=== PATIENT | male | born 1970 | race Caucasian/White ===

== ENCOUNTER 2017-07-13 11:45 | Observation (INO) | payer MEDICARE, MEDICAID ==
[~2017-07-13] VITALS: Ht 193 cm; Wt 106.6 kg
[~2017-07-13 11:45] MED LIST: ACHD5005 PO; CPR500T PO; [UNRECOGNIZED DRUG - OTHER]
[2017-07-13] MEDS ORDERED: fentaNYL INJECTION 100 MCG/2 ML AMP IVP STA (11:59)
[2017-07-13] MEDS ORDERED: KETOROLAC 30 MG/ML VIAL IVP STA (11:59)
[2017-07-13] MEDS ORDERED: NS IV 1000 ML 1,000 ML IV ONE ×3 (11:59→12:38)
[2017-07-13] MEDS ORDERED: ONDANSETRON 4 MG/2 ML (SDV) Z0FRAN IVP ONE (12:00)
[2017-07-13 12:21] LABS: BASOPHILS # (AUTO) 0.1 10^3/uL (0.0-0.1); BASOPHILS % (AUTO) 1 % (0-10); EOSINOPHILS % (AUTO) 0 % (0-10); HEMATOCRIT 47 % (40-54); HEMOGLOBIN 17.3 G/DL (13.3-17.7); LYMPHOCYTES # (AUTO) 2.3 X 10^3 (1.0-4.0); LYMPHOCYTES % (AUTO) 15 % (12-44); MEAN CORPUSCULAR HEMOGLOBIN 33 PG (25-34); MEAN CORPUSCULAR HGB CONC 37 G/DL (32-36); MEAN CORPUSCULAR VOLUME 90 FL (80-99); MONOCYTES # (AUTO) 1.2 X 10^3 (0.0-1.0); MONOCYTES % (AUTO) 8 % (0-12); NEUTROPHILS # (AUTO) 11.7 X 10^3 (1.8-7.8); NEUTROPHILS % (AUTO) 77 % (42-75); PLATELET COUNT 208 10^3/uL (130-400); RED BLOOD COUNT 5.19 10^6/uL (4.35-5.85); RED CELL DISTRIBUTION WIDTH 12.2 % (10.0-14.5); WHITE BLOOD COUNT 15.2 10^3/uL (4.3-11.0)
[2017-07-13 12:30] LABS: PROTHROMBIN TIME PATIENT 13.4 SEC (12.2-14.7)
[2017-07-13 12:36] LABS: BAND NEUTROPHILS 11 %; BASOPHILS % (MANUAL) 0 %; EOSINOPHILS % (MANUAL) 0 %; LYMPHOCYTES % (MANUAL) 11 %; MONOCYTES % (MANUAL) 4 %; NEUTROPHILS % (MANUAL) 74 %; RBC MORPH NORMAL
[2017-07-13] MEDS ORDERED: cefTRIAXone 1 GM (ROCEPHIN) VIAL IV STA (12:38)
[2017-07-13 12:39] LABS: ALANINE AMINOTRANSFERASE 42 U/L (0-55); ALBUMIN 4.2 GM/DL (3.2-4.5); ALKALINE PHOSPHATASE 54 U/L (40-136); BILIRUBIN,TOTAL 1.6 MG/DL (0.1-1.0); BUN/CREATININE RATIO 15; CALCIUM 9.8 MG/DL (8.5-10.1); CARBON DIOXIDE 22 MMOL/L (21-32); CHLORIDE 99 MMOL/L (98-107); CREATININE SERUM 0.92 MG/DL (0.60-1.30); GFR ESTIMATED > 60; GLUCOSE 129 MG/DL (70-105); LIPASE 17 U/L (8-78); POTASSIUM 4.1 MMOL/L (3.6-5.0); SODIUM 134 MMOL/L (135-145); TOTAL PROTEIN 9.5 GM/DL (6.4-8.2)
--- NOTE | 2017-07-13 13:00 | Diagnostic Imaging Report ---
Indication: Left flank pain. Febrile. Findings: Portable chest does suggest focal area of increased density laterally in the left lung base. The lungs are otherwise well aerated and clear. The heart is not enlarged. There is no pulmonary edema. No hilar adenopathy. No pneumothorax or pleural effusion. Impression: Findings suggestive of a small alveolar infiltrate laterally in the left lung base. Followup recommended. Dictated by: Dictated on workstation # [id number]
--- NOTE | 2017-07-13 13:30 | Diagnostic Imaging Report ---
PROCEDURE: CT urinary tract, rule out kidney stone. TECHNIQUE: Multiple contiguous axial images were obtained through the abdomen and pelvis without the use of intravenous contrast. INDICATION: Left flank pain, fever. FINDINGS: Air-containing nondilated appendix well visualized and normal. There is no hydronephrosis or opaque kidney stone. The liver, gallbladder, bile ducts, spleen, adrenals and pancreas were unremarkable. The aorta is nonaneurysmal. There is no bowel, biliary or urinary tract obstruction. No perienteric or pericolonic edema. No bowel wall thickening. No focal inflammatory process. The superficial subcutaneous circumscribed lesion measuring 4 cm in the left groin distorting the skin surface suggestive of a sebaceous cyst but warranting clinical correlation. Lung bases reveal patchy airspace opacity in the left lower lobe suggestive of multifocal pneumonia. Some lower lobe bronchiectasis and airway thickening. No basilar effusion or abscess. Given the nodularity of left basilar infiltrates a CT followup to confirm resolution is indicated to more confidently exclude neoplasm. IMPRESSION: 1. Normal appendix, unobstructed urinary tracts, no inflammatory process or acute appearing abdominopelvic abnormalities. 2. Patchy basilar infiltrates most notably in the left lower lobe suggest foci of pneumonia but warrant a followup CT chest in one months' time to confirm resolution. 3. Subcutaneous left groin lesion suggest large sebaceous cyst but clinical correlation advised. Dictated by: Dictated on workstation # [id number]
[2017-07-13] MEDS ORDERED: RT-ALBUTEROL/IPRATROPIUM 3 ML (DUONEB) VIAL INH ONE (14:00)
[2017-07-13] MEDS ORDERED: morphine INJ 10 MG/ML 1ML (SYR OR VIAL) IVP STA (14:20)
[2017-07-13] MEDS ORDERED: ORPHENADRINE 60 MG/2 ML (NORFLEX) AMP IV STA (14:20)
[2017-07-13] MEDS ORDERED: CATHETER FLUSH 10 ML SYR IV PRN ×2 (14:30→17:30)
[2017-07-13] MEDS ORDERED: NS 250 ML (IVPB) BAG IV ONE (14:30)
[2017-07-13] MEDS ORDERED: IOHEXOL 350 MG/ML 150 ML (OMNIPAQUE 350) VIAL IV ONE (14:30)
--- NOTE | 2017-07-13 14:47 | ED General ---
General Chief Complaint: Abdominal/GI Problems Stated Complaint: SEPSIS, L PNEUMONIC, SEBACEOUS CYST L GROIN Nursing Triage Note: c/o left flank pain/fever. Also reports cough/runny nose. Onset last night. Nursing Sepsis Screen: Possible Sepsis Risk Source of Information: Patient Exam Limitations: No Limitations History of Present Illness Date Seen by Provider: Jul 13, 2017 Time Seen by Provider: 11:55 Initial Comments 46-year-old male patient presents to the emergency department complaints of left flank pain and fever 102F beginning last night. Also complains of cough, rhinorrhea, and sneezing beginning this a.m. Has been unable to urinate today. Denies any history of kidney stones or family history kidney stones. Denies history of similar symptoms. Location Injury Occurred: denies known injury Timing/Duration: Getting Worse, Other (onset last night) Modifying Factors: worse with Movement, worse with Other (worse with palpation , deep breath, movement) Allergies and Home Medications Allergies Coded Allergies: No Known Drug Allergies (Unverified , 05/19/10) Home Medications No Active Prescriptions or Reported Meds Constitutional: chills, No diaphoresis, No dizziness, fever, malaise EENTM: see HPI, nose congestion, No ear pain, No throat pain Respiratory: cough, No dyspnea on exertion, No hemoptysis, No orthopnea, phlegm (clear productive cough), No short of breath, No stridor, wheezing Cardiovascular: No chest pain, No edema, No palpitations, No syncope Gastrointestinal: see HPI, No abdominal pain, No constipation, No diarrhea, No hematemesis, No heartburn, No jaundice, loss of appetite, No melena, No nausea, No vomiting Genitourinary: see HPI, No discharge, No dysuria, No frequency, No hematuria, hesitancy, No incontinence, pain (left flank pain) Musculoskeletal: back pain (left back pain), No joint pain Skin: no symptoms reported Psychiatric/Neurological: No Symptoms Reported All Other Systems Reviewed Negative Unless Noted: Yes (Negative excepted noted.) Past Spihrjz-Gwcrlh-Vvgxrr Hx Patient Social History Recent Foreign Travel: No Contact w/Someone Who Travel: No Recent Infectious Disease Expo: No Surgeries History of Surgeries: Yes (lip surgery, wisdom teeth, shoulder surgery, leg surgery, and T&A) Respiratory History of Respiratory Disorde: No Cardiovascular History of Cardiac Disorders: No Neurological History of Neurological Disord: No Genitourinary History of Genitourinary Disor: Yes (syphilis at age 16) Gastrointestinal History of Gastrointestinal Di: No Musculoskeletal History of Musculoskeletal Dis: Yes Musculoskeletal Disorders: Back Injury Endocrine History of Endocrine Disorders: No HEENT History of HEENT Disorders: No Cancer History of Cancer: No Reviewed Nursing Assessment Reviewed/Agree w Nursing PMH: Yes Family Medical History Significant Family History: No Pertinent Family Hx Physical Exam-Suspected Sepsis Physical Exam Vital Signs Vital Signs - First Documented 07/13/17 11:55 Temp 100.3 Pulse 130 Resp 22 B/P (MAP) 150/107 (121) Pulse Ox 98 O2 Delivery Room Air Capillary Refill : Less Than 3 Seconds Blood Pressure Mean: 121 General Appearance: WD/WN, Anxious, Moderate Distress HEENT: TMs Normal, Moist Mucous Membranes, Other (positive nasal congestion, and pharyngeal erythema, rhinorrhea) Neck: Normal Inspection, Non Tender, Supple Respiratory: Lungs Clear, Normal Breath Sounds, No Accessory Muscle Use, No Respiratory Distress, Other (left posterior lower and lateral ribs tender to palpation without deformity, swelling, or ecchymosis.) Cardiovascular: No Edema, No Murmur, Normal Peripheral Pulses, Tachycardia Gastrointestinal: Normal Bowel Sounds, No Organomegaly, No Pulsatile Mass, Soft , No Mass, Other (left flank tenderness and left upper quadrant tenderness with guarding. No rebound tenderness noted.) Back: Normal Inspection, No Vertebral Tenderness, CVA Tenderness (L), No CVA Tenderness (R) Extremity: Normal Capillary Refill, Normal Inspection, No Calf Tenderness, No Pedal Edema Neurologic/Psychiatric: Alert, Oriented x3, Other (anxious, groaning in pain, tearful) Skin: normal color, warm/dry Focused Exam Evaluation Lactate Level Laboratory Tests 07/13/17 12:10: Lactic Acid Level 2.01*H 07/13/17 14:14: Lactic Acid Level 0.95 Lactic Acid Level Laboratory Tests Test 07/13/17 12:10 07/13/17 14:14 Lactic Acid Level 2.01 MMOL/L (0.50-2.00) *H 0.95 MMOL/L (0.50-2.00) Progress/Results/Core Measures Suspected Sepsis Recent Fever Within 48 Hours: Yes Infection Criteria Present: Suspected New Infection New/Unexplained Altered Menta: No Sepsis Screen: Possible Sepsis Risk Sepsis Diagnosis: SIRS Temperature:100.3 Pulse: 130 Respiratory Rate: 22 Laboratory Tests 07/13/17 12:10: White Blood Count 15.2H Blood Pressure 150 /107 Mean: 121 Laboratory Tests 07/13/17 12:10: Lactic Acid Level 2.01*H 07/13/17 14:14: Lactic Acid Level 0.95 Laboratory Tests 07/13/17 12:10: Creatinine 0.92, INR Comment 1.0, Platelet Count 208, Total Bilirubin 1.6H Results/Orders Lab Results Laboratory Tests Test 07/13/17 12:10 07/13/17 14:14 Range/Units White Blood Count 15.2 H 4.3-11.0 10^3/uL Red Blood Count 5.19 4.35-5.85 10^6/uL Hemoglobin 17.3 13.3-17.7 G/DL Hematocrit 47 40-54 % Mean Corpuscular Volume 90 80-99 FL Mean Corpuscular Hemoglobin 33 25-34 PG Mean Corpuscular Hemoglobin Concent 37 H 32-36 G/DL Red Cell Distribution Width 12.2 10.0-14.5 % Platelet Count 208 130-400 10^3/uL Mean Platelet Volume 11.0 H 7.4-10.4 FL Neutrophils (%) (Auto) 77 H 42-75 % Lymphocytes (%) (Auto) 15 12-44 % Monocytes (%) (Auto) 8 0-12 % Eosinophils (%) (Auto) 0 0-10 % Basophils (%) (Auto) 1 0-10 % Neutrophils # (Auto) 11.7 H 1.8-7.8 X 10^3 Lymphocytes # (Auto) 2.3 1.0-4.0 X 10^3 Monocytes # (Auto) 1.2 H 0.0-1.0 X 10^3 Eosinophils # (Auto) 0.0 0.0-0.3 10^3/uL Basophils # (Auto) 0.1 0.0-0.1 10^3/uL Neutrophils % (Manual) 74 % Lymphocytes % (Manual) 11 % Monocytes % (Manual) 4 % Eosinophils % (Manual) 0 % Basophils % (Manual) 0 % Band Neutrophils 11 % Blood Morphology Comment NORMAL Prothrombin Time 13.4 12.2-14.7 SEC INR Comment 1.0 0.8-1.4 Activated Partial Thromboplast Time 30 24-35 SEC Sodium Level 134 L 135-145 MMOL/L Potassium Level 4.1 3.6-5.0 MMOL/L Chloride Level 99 98-107 MMOL/L Carbon Dioxide Level 22 21-32 MMOL/L Anion Gap 13 5-14 MMOL/L Blood Urea Nitrogen 14 7-18 MG/DL Creatinine 0.92 0.60-1.30 MG/DL Estimat Glomerular Filtration Rate > 60 BUN/Creatinine Ratio 15 Glucose Level 129 H 70-105 MG/DL Lactic Acid Level 2.01 *H 0.95 0.50-2.00 MMOL/L Calcium Level 9.8 8.5-10.1 MG/DL Total Bilirubin 1.6 H 0.1-1.0 MG/DL Aspartate Amino Transf (AST/SGOT) 29 5-34 U/L Alanine Aminotransferase (ALT/SGPT) 42 0-55 U/L Alkaline Phosphatase 54 40-136 U/L Total Protein 9.5 H 6.4-8.2 GM/DL Albumin 4.2 3.2-4.5 GM/DL Lipase 17 8-78 U/L Serum Alcohol < 10 <10 MG/DL Micro Results Microbiology 07/13/17 Influenza Types A,B Antigen (GARRISON) - Final, Complete My Orders Orders - DEVIN RESTREPO Ct Abd/Pelvis Wo(Kidney Stone) (07/13/17 12:06) Chest 1 View, Ap/Pa Only (07/13/17 12:06) Alcohol (07/13/17 12:06) Drug Screen Stat (Urine) (07/13/17 12:06) Lactic Acid Analyzer (07/13/17 12:06) Lipase (07/13/17 12:06) Blood Culture (07/13/17 12:06) Influenza A And B Antigens (07/13/17 12:06) Protime With Inr (07/13/17 12:06) Partial Thromboplastin Time (07/13/17 12:06) Vital Signs Adult Sepsis Patie Q1H (07/13/17 12:06) Ceftriaxone Injection (Rocephin Injectio (07/13/17 12:38) Ns Iv 1000 Ml (Sodium Chloride 0.9%) (07/13/17 12:38) Ns Iv 1000 Ml (Sodium Chloride 0.9%) (07/13/17 12:38) Ct Angio Chest W (07/13/17 13:38) Albuterol/Ipra Inhalation Soln (Duoneb I (07/13/17 14:00) Svn Sm Volume Nebulizer Rt-Rfs (07/13/17 13:50) Morphine Injection (Morphine Injection (07/13/17 14:20) Orphenadrine Injection (Norflex Injectio (07/13/17 14:20) Iohexol Injection (Omnipaque 350 Mg/Ml 1 (07/13/17 14:30) Sodium Chloride Flush (Catheter Flush Sy (07/13/17 14:30) Ns (Ivpb) (Sodium Chloride 0.9%) (07/13/17 14:30) Medications Given in ED Current Medications Medications Dose Ordered Sig/Debra Route Start Time Stop Time Status Last Admin Dose Admin Ondansetron HCl 4 mg ONCE ONCE IVP 07/13/17 12:00 07/13/17 12:01 DC 07/13/17 12:26 4 MG Sodium Chloride 1,000 ml @ 0 mls/hr Q0M ONCE IV 07/13/17 11:59 07/13/17 12:01 DC 07/13/17 12:26 1,000 MLS/HR Sodium Chloride 1,000 ml @ 0 mls/hr Q0M ONCE IV 07/13/17 12:38 07/13/17 12:42 DC 07/13/17 14:20 0 MLS/HR Vital Signs/I&O Vital Sign - Last 12Hours 07/13/17 07/13/17 07/13/17 07/13/17 11:55 12:25 12:25 14:07 Temp 100.3 100.3 100.3 Pulse 130 Resp 22 B/P (MAP) 150/107 (121) Pulse Ox 98 93 O2 Delivery Room Air Room Air 07/13/17 15:00 Temp 100.3 Capillary Refill : Less Than 3 Seconds Blood Pressure Mean: 121 Departure Communication (Admissions) Communication Dr. Lo Impression Impression: Primary Impression: Sepsis Additional Impressions: Left lower lobe pneumonia Sebaceous cyst Disposition: ADMITTED INPATIENT Condition: Stable Admissions Decision to Admit Reason: Admit from ER (General) Decision to Admit/Date: Jul 13, 2017 Departure-Patient Inst. Referrals: NO,LOCAL PHYSICIAN (PCP/Family) Primary Care Physician Scripts No Active Prescriptions or Reported Meds DEVIN RESTREPO Jul 13, 2017 14:47
[2017-07-13] MEDS ORDERED: NS IV 1000 ML 1,000 ML ONE (15:42)
--- NOTE | 2017-07-13 15:46 | Diagnostic Imaging Report ---
PROCEDURE: CT angiography of the chest with contrast. TECHNIQUE: Multiple contiguous axial images were obtained through the chest after uneventful bolus administration of intravenous contrast. Reconstructed CTA MIP acquisitions were also performed. INDICATION: Left flank pain since last night. Shortness of breath. FINDINGS: There is moderate opacification of the aorta and pulmonary arteries. There are no filling defects to indicate pulmonary emboli. No evidence of aortic aneurysm or dissection. There are 2 densities noted in the left lung base adjacent to each other laterally. One is pleural-based measuring approximately 2.3 cm. A second just central to this measures 1.8 cm. These do have a somewhat solid appearance and do not show air bronchograms. There is also a 1.5 cm nodule in the left upper lobe with a smaller 5 mm nodule in the lingula. The lungs are otherwise well aerated and clear. There are a few scattered mediastinal lymph nodes noted in the middle mediastinum and the AP window all measuring less than 1 cm. Left hilar lymph node present measuring approximately 1.5 cm. There is no pleural effusion or pericardial effusion. IMPRESSION: 1. There are several pulmonary nodules involving the lateral aspect of the left lower lobe as well as the left upper lobe and lingula. There are also scattered mediastinal lymph nodes with left hilar lymph node. These findings may all be inflammatory in nature though underlying malignancy could not be excluded from this single exam. 2. No evidence of pulmonary emboli. Dictated by: Dictated on workstation # [id number]
--- NOTE | 2017-07-13 15:52 | History & Physical-Hospitalist ---
HPI History of Present Illness: HPI/Chief Complaint Pt is a 46yoCM with no reported medical history who presented to the ER with CC of back and left flank pain that started suddenly last night. He denies any previous history of similar pain or kidney stones. It continued to worsen throughout the day today and he presented to the ER for evaluation. He denies any hematuria or dysuria. He denies any cough, SOB, or sputum. On CT abd and pelvis no stone was seen or abdominal pathology but a left lower lobe infiltrate was noted. A CTA Chest was done in the ER but official read is pending. He denies any sick contacts but has been febrile since last night to 101. Source: patient Exam Limitations: no limitations Date Seen 07/13/17 Time Seen by Provider: 15:30 Attending Physician Ankit Lo MD PCP No,Local Physician Referring Physician Date of Admission Jul 13, 2017 at 13:57 Home Medications & Allergies Home Medications Reviewed patient Home Medication Reconciliation Form Allergies Allergies Coded Allergies No Known Drug Allergies ([id number]/16/10) Past Tofcdmx-Xqvtnd-Rookos Hx Patient Social History Alcohol Use: Denies Use Recreational Drug Use: Yes Drug of Choice: THC- occasional Smoking Status: Never a Smoker Recent Foreign Travel: No Contact w/other who traveled: No Recent Infectious Disease Expo: No Surgeries Yes Abdominal (hernia), Orthopedic (shoulder and leg) Respiratory No Cardiovascular No Neurological No Genitourinary No Gastrointestinal No Musculoskeletal No HEENT History of HEENT Disorders: No Cancer No Psychosocial History of Psychiatric Problem: No Family Medical History Significant Family History: Heart Disease (grandmother), Cancer (father- prostate) Review of Systems Constitutional: No chills, fever EENTM: No blurred vision, No double vision, No nose congestion, No throat pain Respiratory: No cough, No dyspnea on exertion, No hemoptysis, No phlegm, No short of breath, No wheezing Cardiovascular: No chest pain, No edema, No palpitations Gastrointestinal: No abdominal pain, No constipation, No diarrhea, No nausea, No vomiting Genitourinary: No dysuria, No frequency, No hematuria Musculoskeletal: No joint pain, No muscle pain, other (back and flank pain) Skin: No lesions, No rash Psychiatric/Neurological: Denies Headache, Denies Numbness, Denies Tingling Physical Exam Physical Exam Vital Signs Vital Signs - First Documented 07/13/17 11:55 Temp 100.3 Pulse 130 Resp 22 B/P (MAP) 150/107 (121) Pulse Ox 98 O2 Delivery Room Air Capillary Refill : Less Than 3 Seconds General Appearance: No Apparent Distress, WD/WN HEENT: PERRL/EOMI, Moist Mucous Membranes Neck: Non Tender, Supple Respiratory: No Respiratory Distress, Rhonci Cardiovascular: Regular Rate, Rhythm, No Murmur Gastrointestinal: Normal Bowel Sounds, Non Tender, Soft Extremity: Normal Capillary Refill, No Calf Tenderness Neurologic/Psychiatric: Alert, Oriented x3, Normal Mood/Affect Skin: Normal Color, Warm/Dry Results Results/Procedures Lab Laboratory Tests 07/13/17 12:10 Assessment/Plan Admission Diagnosis Severe Sepsis due to CAP Diagnosis/Problems Diagnosis/Problems (1) Sepsis Status: Acute Assessment & Plan: Febrile, leukocytosis, and tachycardia with PNA Lactic elevated to 2.01 Started on Rocephin in ER, will add Azithro Lactic acid has resolved by my exam Will check UA Flu negative Blood cultures drawn in ER No hypotension so no need for 30cc/kg bolus CTA chest pending Qualifiers: Qualified Codes: A41.9 - Sepsis, unspecified organism (2) Left lower lobe pneumonia Status: Acute Assessment & Plan: Abx as above Will get strep pna and legionella antigen Qualifiers: Qualified Codes: J18.1 - Lobar pneumonia, unspecified organism (3) Elevated blood pressure reading Assessment & Plan: No known history of hypertension Will trend (4) Prophylactic measure Assessment & Plan: NS at 250 x2 hours then 150cc/hr Lovenox Regular Diet ANKIT LO MD Jul 13, 2017 15:52
[2017-07-13 16:13] LABS: AMPHETAMINE SCREEN, URINE NEGATIVE (NEGATIVE); BARBITURATE SCREEN URINE NEGATIVE (NEGATIVE); BENZODIAZEPINES SCREEN URINE NEGATIVE (NEGATIVE); CANNABINOID SCREEN, URINE POSITIVE (NEGATIVE); COCAINE SCREEN URINE NEGATIVE (NEGATIVE); METHADONE STAT NEGATIVE (NEGATIVE); METHAMPHETAMINE SCREEN URINE S NEGATIVE (NEGATIVE); OPIATE SCREEN URINE POSITIVE (NEGATIVE); OXYCODONE STAT NEGATIVE (NEGATIVE); PROPOXYPHENE STAT NEGATIVE (NEGATIVE); TRICYCLIC ANTIDEPRESSANTS SCRE NEGATIVE (NEGATIVE)
[2017-07-13 16:50] VITALS: BP 169/96
[2017-07-13] MEDS ORDERED: AZITHROMYCIN 500 MG/NS 250 ML IVPB IV NR ×2 (17:33)
[2017-07-13] MEDS: NS IV 1000 ML IV ONE ×2 (17:36→17:45)
[2017-07-13] MEDS ORDERED: INFLUENZA TRIvalent 2017-2018 0.5 ML/45 MCG SYR IM ONE (17:45)
[2017-07-13] MEDS ORDERED: HYDROcodone/APAP 5 MG/325 MG (LORTAB) TAB PO PRN (17:45)
[2017-07-13] MEDS ORDERED: ONDANSETRON 4 MG/2 ML (SDV) Z0FRAN IV PRN (17:45)
[2017-07-13] MEDS: KETOROLAC 30 MG/ML VIAL IV SCH (17:46)
[2017-07-13 18:15] VITALS: BP 144/92
[2017-07-13 19:30] VITALS: BP 139/94
[2017-07-13] MEDS ORDERED: RT-ALBUTEROL/IPRATROPIUM 3 ML (DUONEB) VIAL ONE (20:04)
[2017-07-13] MEDS: RT-ALBUTEROL/IPRATROPIUM 3 ML (DUONEB) VIAL INH SCH (20:09)
[2017-07-13] MEDS ORDERED: RT-ALBUTEROL/IPRATROPIUM 3 ML (DUONEB) VIAL INH PRN (20:15)
[2017-07-13] MEDS: CYCLOBENZAPRINE 10 MG (FLEXERIL) TAB PO SCH (20:22)
[2017-07-13] MEDS: ACETAMINOPHEN 325 MG TABLET/CAPLET (TYLENOL) PO PRN (20:23)
[2017-07-13] MEDS ORDERED: fentaNYL INJECTION 100 MCG/2 ML AMP IVP PRN (21:00)
[2017-07-13] MEDS: NS IV 1000 ML 1,000 ML IV SCH (21:58)
[2017-07-14] VITALS: BP 156/92
[2017-07-14] MEDS: KETOROLAC 30 MG/ML VIAL IV SCH ×4 (00:19→17:57)
[2017-07-14] MEDS: NS IV 1000 ML 1,000 ML IV SCH ×2 (00:19→06:58)
[2017-07-14 04:11] VITALS: BP 142/87
[2017-07-14 05:27] LABS: BASOPHILS # (AUTO) 0.1 10^3/uL (0.0-0.1); BASOPHILS % (AUTO) 1 % (0-10); EOSINOPHILS % (AUTO) 0 % (0-10); HEMATOCRIT 40 % (40-54); HEMOGLOBIN 14.4 G/DL (13.3-17.7); LYMPHOCYTES # (AUTO) 2.1 X 10^3 (1.0-4.0); LYMPHOCYTES % (AUTO) 24 % (12-44); MEAN CORPUSCULAR HEMOGLOBIN 33 PG (25-34); MEAN CORPUSCULAR HGB CONC 36 G/DL (32-36); MEAN CORPUSCULAR VOLUME 92 FL (80-99); MEAN PLATELET VOLUME 10.9 FL (7.4-10.4); MONOCYTES # (AUTO) 0.7 X 10^3 (0.0-1.0); MONOCYTES % (AUTO) 8 % (0-12); NEUTROPHILS # (AUTO) 5.9 X 10^3 (1.8-7.8); NEUTROPHILS % (AUTO) 67 % (42-75); PLATELET COUNT 159 10^3/uL (130-400); RED BLOOD COUNT 4.36 10^6/uL (4.35-5.85); RED CELL DISTRIBUTION WIDTH 12.2 % (10.0-14.5); WHITE BLOOD COUNT 8.8 10^3/uL (4.3-11.0)
[2017-07-14 05:44] LABS: ALANINE AMINOTRANSFERASE 31 U/L (0-55); ALBUMIN 3.3 GM/DL (3.2-4.5); ALKALINE PHOSPHATASE 39 U/L (40-136); BILIRUBIN,TOTAL 0.8 MG/DL (0.1-1.0); BUN/CREATININE RATIO 15; CALCIUM 8.7 MG/DL (8.5-10.1); CARBON DIOXIDE 23 MMOL/L (21-32); CHLORIDE 109 MMOL/L (98-107); CREATININE SERUM 0.68 MG/DL (0.60-1.30); GFR ESTIMATED > 60; GLUCOSE 107 MG/DL (70-105); POTASSIUM 4.1 MMOL/L (3.6-5.0); SODIUM 139 MMOL/L (135-145); TOTAL PROTEIN 7.4 GM/DL (6.4-8.2)
[2017-07-14] MEDS: RT-ALBUTEROL/IPRATROPIUM 3 ML (DUONEB) VIAL INH SCH ×4 (06:31→19:17)
[2017-07-14 08:00] VITALS: BP 162/95
[2017-07-14] MEDS: CYCLOBENZAPRINE 10 MG (FLEXERIL) TAB PO SCH ×3 (08:51→20:13)
[2017-07-14] MEDS: cefTRIAXone 1 GM/NS 50 ML IVPB IV SCH ×2 (08:51)
[2017-07-14] MEDS: AZITHROMYCIN 250 MG TAB (ZITHROMAX) PO SCH (08:52)
[2017-07-14] MEDS: ENOXAPARIN 40 MG/0.4 ML (LOVENOX) SYR SC SCH (08:52)
--- NOTE | 2017-07-14 09:18 | Progress Note-Hospitalist ---
Subjective HPI/CC On Admission Date Seen by Provider: Jul 14, 2017 Time Seen by Provider: 09:17 Pt is a 46yoCM with no reported medical history who presented to the ER with CC of back and left flank pain that started suddenly last night. He denies any previous history of similar pain or kidney stones. It continued to worsen throughout the day today and he presented to the ER for evaluation. He denies any hematuria or dysuria. He denies any cough, SOB, or sputum. On CT abd and pelvis no stone was seen or abdominal pathology but a left lower lobe infiltrate was noted. A CTA Chest was done in the ER but official read is pending. He denies any sick contacts but has been febrile since last night to 101. Subjective/Events-last exam Reports feeling much better. Had some rib pain with IS yesterday evening but has not recurred. No other complaints. Objective Exam Vital Signs Vital Signs Date Time Temp Pulse Resp B/P (MAP) Pulse Ox O2 Delivery O2 Flow Rate FiO2 07/13/17 11:55 100.3 130 22 150/107 (121) 98 Room Air 07/13/17 19:58 21 Capillary Refill : Less Than 3 Seconds General Appearance: No Apparent Distress, WD/WN Respiratory: No Respiratory Distress, Crackles (left base) Cardiovascular: Regular Rate, Rhythm, No Murmur Gastrointestinal: Normal Bowel Sounds, Non Tender, Soft Extremity: Non Tender, No Calf Tenderness Neurologic/Psychiatric: Alert, Oriented x3 Results/Procedures Lab Laboratory Tests 07/13/17 12:10 07/14/17 05:15 Assessment/Plan Assessment and Plan Assess & Plan/Chief Complaint CAP Diagnosis/Problems Diagnosis/Problems (1) Sepsis Status: Acute Assessment & Plan: Febrile, leukocytosis, and tachycardia with PNA Lactic elevated to 2.01 (met severe sepsis on arrival- now resolved) Cont Rocephin and Azithro Flu negative Blood cultures drawn in ER CTA chest- shows several nodules and enlarged lymph nodes- likely reactive I discussed with patient and will need to follow up as an outpatient Qualifiers: Qualified Codes: A41.9 - Sepsis, unspecified organism (2) Left lower lobe pneumonia Status: Acute Assessment & Plan: Abx as above Pending- strep pna and legionella antigen Qualifiers: Qualified Codes: J18.1 - Lobar pneumonia, unspecified organism (3) Elevated blood pressure reading Assessment & Plan: No known history of hypertension Remains elevated- will DC fluids and if remains elevated will consider antihypertensives (4) Prophylactic measure Assessment & Plan: Saline lock Lovenox Regular Diet ANKIT PADILLA MD Jul 14, 2017 09:18
[2017-07-14] MEDS ORDERED: lisINopril 5 MG (PRINIVIL) TABLET PO SCH (09:30)
--- NOTE | 2017-07-14 10:00 | Diagnostic Imaging Report ---
EXAM: CHEST PA/LAT (2 VIEW) INDICATION: Pneumonia. COMPARISON: Chest radiograph 07/13/2017. CTA chest 07/13/2017. FINDINGS: Normal heart size and pulmonary vascularity. Nodular consolidation in the left lung base is similar to the prior exam. No pleural effusion or pneumothorax. No acute osseous findings. IMPRESSION: Stable exam including nodular opacities in the left lung base. Dictated by: Dictated on workstation # [id number]
[2017-07-14 12:00] VITALS: BP 159/90
[2017-07-14] MEDS: ACETAMINOPHEN 325 MG TABLET/CAPLET (TYLENOL) PO PRN (12:24)
[2017-07-14 16:00] VITALS: BP 132/72
[2017-07-14 20:00] VITALS: BP 138/81
[2017-07-15] VITALS: BP 157/80
[2017-07-15] MEDS: KETOROLAC 30 MG/ML VIAL IV SCH ×2 (00:31→05:55)
[2017-07-15 04:00] VITALS: BP 144/85
[2017-07-15] MEDS: RT-ALBUTEROL/IPRATROPIUM 3 ML (DUONEB) VIAL INH SCH (07:08)
[2017-07-15 08:00] VITALS: BP 153/87
[2017-07-15] MEDS ORDERED: lisINopril 5 MG (PRINIVIL) TABLET PO SCH (09:00)
[2017-07-15] MEDS ORDERED: AMOX875T2 PO (09:05)
[2017-07-15] MEDS ORDERED: LISI-556 PO (09:05)
[2017-07-15] MEDS ORDERED: ACET325T49 PO (09:05)
[2017-07-15] MEDS ORDERED: AZIT250T12 PO (09:05)
[2017-07-15] MEDS ORDERED: ACHD5005 PO (09:05)
[2017-07-15] MEDS: CYCLOBENZAPRINE 10 MG (FLEXERIL) TAB PO SCH (09:06)
[2017-07-15] MEDS: AZITHROMYCIN 250 MG TAB (ZITHROMAX) PO SCH (09:06)
[2017-07-15] MEDS: ENOXAPARIN 40 MG/0.4 ML (LOVENOX) SYR SC SCH (09:07)
[2017-07-15] MEDS: cefTRIAXone 1 GM/NS 50 ML IVPB IV SCH ×2 (09:07)
--- NOTE | 2017-07-15 09:28 | Discharge Summary-Hospitalist ---
Diagnosis/Chief Complaint Date of Admission Jul 13, 2017 at 1:57 pm Date of Discharge Discharge Date: Jul 15, 2017 Admission Diagnosis Severe Sepsis due to CAP Discharge Diagnosis CAP (1) Sepsis Status: Resolved Assessment & Plan: Febrile, leukocytosis, and tachycardia with PNA on arrival Lactic elevated to 2.01 (met severe sepsis on arrival- now resolved) Cont Rocephin and Azithro today and then complete course with Amoxil and Azithro as outpatient Flu negative Blood cultures- NGTD CTA chest- shows several nodules and enlarged lymph nodes- likely reactive I discussed with patient that he will need to follow up as an outpatient, he verbalized understanding Referral placed for Dr Osorio (2) Left lower lobe pneumonia Status: Acute Assessment & Plan: Abx as above (3) Elevated blood pressure reading Assessment & Plan: No known history of hypertension Still elevated without fluids and no longer in pain Will start Lisinopril Recommended follow up with his PCP (4) Prophylactic measure Assessment & Plan: Saline lock Lovenox Regular Diet Discharge Summary Discharge Physical Examination Allergies: Coded Allergies: No Known Drug Allergies (Unverified , 05/19/10) Vitals & I&Os Vital Signs Date Time Temp Pulse Resp B/P (MAP) Pulse Ox O2 Delivery O2 Flow Rate FiO2 07/15/17 07:08 92 Room Air 07/15/17 07:00 68 07/15/17 04:00 100.8 20 144/85 (104) 07/13/17 19:58 21 Hospital Course Pt is a 46yoCM who presented to the ER with left flank pain and was found to met severe sepsis criteria due to CAP. He was admitted for IV abx. His symptoms improved and he had no further pain and was breathing comfortably. He was offered an additional day due to fever this AM but he requested discharge today. Discussed return precautions and discharged home in stable condition. He was informed of his CT chest finding (pulmonary nodules and enlarged lymph nodes ) and the importance of following these up. Referrals were placed for Dr Flores who he has seen in the past and Dr Osorio to help facilitate follow up. Labs (last 24 hrs) Microbiology 07/13/17 Blood Culture - Preliminary, Resulted No growth 07/13/17 Influenza Types A,B Antigen (GARRISON) - Final, Complete Discharge Home Medications: Active Scripts Active Acetaminophen 325 Mg Tablet 650 Mg PO Q4H PRN Hydrocodone/Acetaminophen 5/325mg Tablet (Acetaminophen/Hydrocodone Bitart) 1 Tab Tab 1-2 Tab PO Q4H PRN Amoxicillin 875 Mg Tablet 875 Mg PO BID Lisinopril 5 Mg Tablet 5 Mg PO DAILY Azithromycin 250 Mg Tablet 250 Mg PO DAILY 2 Days Instructions to patient/family Please see electronic discharge instructions given to patient. Clinical Quality Measures DVT/VTE Risk/Contraindication: Risk Factor Score Per Nursin RFS Level Per Nursing on Admit: 1=Low/No VTE PPX Copy Copies To 1: KAZ OSORIO DO; MIKE FLORES DO Problem Qualifiers (1) Sepsis: Sepsis type: sepsis due to unspecified organism Qualified Codes: A41.9 - Sepsis, unspecified organism (2) Left lower lobe pneumonia: Pneumonia type: due to unspecified organism Qualified Codes: J18.1 - Lobar pneumonia, unspecified organism ANKIT PADILLA MD Jul 15, 2017 9:28 am
== END 2017-07-15 09:08 | disposition home or self-care (01) ==
LOC: EDUNIT# 11:45 → ER 11:46 → UNDOADMOB 13:57 → 4TH 13:57 → UNDODISOB 07-15 10:20
PROVIDERS: ADMIT Family Medicine; ATTEND Family Medicine
DX: A41.9 Sepsis, unspecified organism (principal); R65.20 Severe sepsis without septic shock; J18.9 Pneumonia, unspecified organism; I10 Essential (primary) hypertension; Z79.899 Other long term (current) drug therapy
CPT/HCPCS: 36415; 71045; 71046; 71275; 74176; 80053; 80306; 80320; 83605; 83690; 85007; 85025; 85027; 85610; 85730; 87040; 87804; 94640; 94664; 94760; 96361; 96374; 96375; G0378

== ENCOUNTER → 2017-07-18 | Outpatient (CLI) | payer MEDICARE, MEDICAID ==
[~2017-07-18] MED LIST changes: +ACET325T49 PO; +AMOX875T2 PO; +AZIT250T12 PO; +LISI-556 PO
[2017-07-18 15:44] LABS: BASOPHILS # (AUTO) 0.1 10^3/uL (0.0-0.1); BASOPHILS % (AUTO) 1 % (0-10); EOSINOPHILS # (AUTO) 0.1 10^3/uL (0.0-0.3); EOSINOPHILS % (AUTO) 1 % (0-10); HEMATOCRIT 44 % (40-54); LYMPHOCYTES % (AUTO) 23 % (12-44); MEAN CORPUSCULAR HEMOGLOBIN 32 PG (25-34); MEAN CORPUSCULAR HGB CONC 37 G/DL (32-36); MEAN CORPUSCULAR VOLUME 88 FL (80-99); MEAN PLATELET VOLUME 10.3 FL (7.4-10.4); MONOCYTES # (AUTO) 1.3 X 10^3 (0.0-1.0); MONOCYTES % (AUTO) 15 % (0-12); NEUTROPHILS # (AUTO) 5.3 X 10^3 (1.8-7.8); NEUTROPHILS % (AUTO) 60 % (42-75); PLATELET COUNT 403 10^3/uL (130-400); RED BLOOD COUNT 4.94 10^6/uL (4.35-5.85); WHITE BLOOD COUNT 8.8 10^3/uL (4.3-11.0)
--- NOTE | 2017-07-18 16:05 | Diagnostic Imaging Report ---
INDICATION: Left-sided chest pain and cough. TIME OF EXAM: 04:04 p.m. COMPARISON: Comparison is made with prior exam from 07/14/2017. FINDINGS: The heart size is stable. There are linear parenchymal densities noted in both bases suggestive of atelectasis. There is also some increased density in the left base near the costophrenic angle. Infiltrate or atelectasis cannot be excluded. The mid and upper lung gabriel are clear. No pneumothorax is seen. IMPRESSION: Bibasilar subsegmental atelectasis or scarring and questionable infiltrate or atelectasis near the left costophrenic angle. The study is otherwise unremarkable. Dictated by: Dictated on workstation # [id number]
== END ==
LOC: RAD 15:14
PROVIDERS: ATTEND Family Medicine
DX: J18.9 Pneumonia, unspecified organism (principal); R07.9 Chest pain, unspecified; R05 Cough
CPT/HCPCS: 36415; 71046; 85025

== ENCOUNTER → 2017-08-03 | Outpatient (CLI) | payer MEDICARE, MEDICAID ==
--- NOTE | 2017-08-03 15:15 | Diagnostic Imaging Report ---
INDICATION: Pulmonary nodule and cough. TIME OF EXAM: 3:13 PM COMPARISON: Correlation is made with prior study from 07/18/2017. FINDINGS: The heart size is normal. Linear parenchymal density in the left base persists consistent with atelectasis. This is slightly improved. No infiltrates are seen. No effusion. No pneumothorax is identified. IMPRESSION: Mild improved aeration to the left lung base when compared with examination from 07/18/2017. Dictated by: Dictated on workstation # [id number]
== END ==
LOC: RAD 14:44
PROVIDERS: ATTEND Family Medicine
DX: R91.1 Solitary pulmonary nodule (principal); R05 Cough
CPT/HCPCS: 71046

== ENCOUNTER → 2017-09-12 | Outpatient (CLI) | payer MEDICARE, MEDICAID ==
[~2017-09-12] MED LIST changes: +IOHEXOL 350 MG/ML 100 ML (OMNIPAQUE 350) VIAL IV ONE; +NS 250 ML (IVPB) BAG IV ONE
[2017-09-12 12:23] LABS: BUN/CREATININE RATIO 13; CREATININE SERUM 0.77 MG/DL (0.60-1.30); GFR ESTIMATED > 60
--- NOTE | 2017-09-12 13:26 | Diagnostic Imaging Report ---
PROCEDURE: CT chest with contrast only. TECHNIQUE: Multiple contiguous axial images were obtained through the chest after administration of intravenous contrast. INDICATION: Pulmonary nodules noted on prior CT. This study is performed for followup. COMPARISON: Comparison is made with prior CT chest from 07/13/2017. FINDINGS: No axillary lymphadenopathy is seen. There continue to be small lymph nodes within the mediastinum, stable when compared with prior exam. No definite hilar lymphadenopathy is seen on today's study. No pericardial or pleural fluid is identified. Parenchymal evaluation demonstrates the central airways to be unremarkable. The area of nodular density in the left upper lobe on prior study has resolved. The larger areas of questionable mass-like density in the lateral portion of the left lower lobe have resolved. Only minimal residual linear density in the left lower lobe posteriorly is seen suggestive of subsegmental atelectasis or scarring. No parenchymal mass is seen. The right lung appears to be clear. Minimal residual density in the lingula is seen consistent with scarring or atelectasis. Upper abdomen demonstrates low density throughout the liver consistent with steatosis. Spleen appears enlarged but stable. IMPRESSION: 1. Significantly improved appearance to the chest when compared with the prior CT from 07/13/2017. The areas of abnormal opacification in the left lower lobe have resolved and most likely represented an infectious/inflammatory process. The density in left upper lobe has resolved as well. Only mild residual left basilar subsegmental atelectasis or scarring is seen. Minimally prominent mediastinal nodes are stable. Dictated by: Dictated on workstation # [id number]
== END ==
LOC: RAD 11:35
PROVIDERS: ATTEND Family Medicine
DX: R91.8 Other nonspecific abnormal finding of lung field (principal)
CPT/HCPCS: 36415; 71260; 82565; 84520

== ENCOUNTER 2017-11-16 11:00 | Outpatient (CLI) | payer MEDICARE, MEDICAID ==
[~2017-11-16] VITALS: Ht 193 cm; Wt 106.6 kg
[~2017-11-16 11:00] MED LIST changes: -IOHEXOL 350 MG/ML 100 ML (OMNIPAQUE 350) VIAL IV ONE; -NS 250 ML (IVPB) BAG IV ONE
[2017-11-16] MEDS ORDERED: LISI10TA2 PO (14:17)
[2017-11-21] MEDS ORDERED: ACHD5005 PO (10:21)
== END 2017-11-16 14:18 ==
LOC: PREOP 11:00
PROVIDERS: ATTEND Surgery
DX: Z01.818 Encounter for other preprocedural examination (principal); L72.3 Sebaceous cyst

== ENCOUNTER 2017-11-21 07:25 | Day surgery (SDC) | payer MEDICARE, MEDICAID ==
[~2017-11-21] VITALS: Ht 193 cm; Wt 106.6 kg
[~2017-11-21 07:25] MED LIST changes: +LISI10TA2 PO
[2017-11-21] MEDS ORDERED: LACTATED RINGERS 1,000 ML IV PRN (07:28)
[2017-11-21] MEDS ORDERED: ceFAZolin 2 GM IV Premixed 50 ML IV ONE (07:30)
[2017-11-21 07:40] VITALS: BP 150/104
--- NOTE | 2017-11-21 08:04 | Progress Note-Pre Operative ---
Pre-Operative Progress Note H&P Reviewed The H&P was reviewed, patient examined and no changes noted. Date Seen by Provider: Nov 08, 2017 Time Seen by Provider: 11:00 Date H&P Reviewed: Nov 21, 2017 Time H&P Reviewed: 08:03 Pre-Operative Diagnosis: Nicholas cyst right nape of neck ALBERTO LOREDO MD Nov 21, 2017 8:04 am
[2017-11-21] MEDS ORDERED: FAMOTIDINE 20MG/2ML IV (PEPCID) ONE (08:20)
[2017-11-21] MEDS ORDERED: FAMOTIDINE 20MG/2ML IV (PEPCID) IVP ONE (08:20)
[2017-11-21] MEDS ORDERED: BUP/EPI 0.5% 1:200,000 (SENSORCAINE) 30 ML VIAL ONE (09:34)
[2017-11-21] MEDS ORDERED: fentaNYL INJECTION 100 MCG/2 ML AMP ONE (09:47)
[2017-11-21] MEDS ORDERED: LIDOCAINE PF 2% 5 ML (XYLOCAINE) VIAL ONE (09:47)
[2017-11-21] MEDS ORDERED: proPOfol 200 MG/20 ML (DIPRIVAN) VIAL IV ONE (09:47)
[2017-11-21] MEDS ORDERED: ONDANSETRON 4 MG/2 ML (SDV) Z0FRAN ONE (09:47)
[2017-11-21] MEDS ORDERED: ROCURONIUM 10 MG/ML 5 ML SYRINGE IV ONE (09:47)
[2017-11-21] MEDS ORDERED: MIDAZOLAM 2 MG/2 ML (VERSED) VIAL ONE (09:48)
[2017-11-21] MEDS ORDERED: SEVOFLURANE (ULTANE) 15 ML INHAL SOLN ONE ×4 (09:51→10:37)
--- NOTE | 2017-11-21 10:20 | Operative Report ---
Operative Report Date of Procedure/Surgery Nov 21, 2017 Surgeon (s) ALBERTO LOREDO MD Senior Procurement Manager (s): N/A Post-Operative Diagnosis Same Procedure Performed Excision with layered closure Description of Procedure Anesthesia Type: General Estimated blood loss (mL): Minimal Specimen(s) collected/removed Sebaceous cyst Description of the Procedure Indication for the procedure: This gentleman presented with a 6 cm sebaceous cyst over the nape of his neck on the right side. He was offered excision under general anesthetic. Informed consent was obtained after reviewing the details of the operation and complications of postoperative hematoma, wound infection and recurrence of the cyst. Description of procedure: He was placed supine on the operative table and general anesthesia induced. 2 g of Ancef were administered intravenously as prophylaxis against wound infection. The right side of his neck was prepared and draped in the usual sterile manner. Preemptive analgesia was established using 0.5 percent Marcaine with epinephrine. An elliptical incision about 7 cm in length was made and the cyst excised. Hemostasis was achieved using cautery and the incision closed using 3-0 Vicryl for the subcutaneous tissue and 4-0 Vicryl for skin, in a subcuticular fashion. Steri-Strips and a nonadherent dressing were then applied. He tolerated the procedure well, was extubated in the operating room and taken to the recovery room in a stable condition. Findings of the Procedure see op report Allergies and Home Medications Allergies Coded Allergies: No Known Drug Allergies (Unverified , 05/19/10) Home Medications Lisinopril 10 Mg Tablet, 10 MG PO DAILY, (Reported) Patient Home Medication List Home Medication List Reviewed: Yes ALBERTO LOREDO MD Nov 21, 2017 10:20 am
[2017-11-21] MEDS ORDERED: ACHD5005 PO (10:21)
--- NOTE | 2017-11-21 10:21 | Discharge Inst-Simple/Standard ---
Discharge Inst-Standard Discharge Medications New, Converted or Re-Newed RX: RX on Chart Patient Instructions/Follow Up Plan of Care/Instructions/FU: Dressings off in 48 hours. Follow-up when necessary. No sutures to be removed Activity as Tolerated: Yes Discharge Diet: No Restrictions ALBERTO LOREDO MD Nov 21, 2017 10:21 am
[2017-11-21] MEDS ORDERED: DEXAMETHASONE 10 MG/ML (DECADRON) 1 ML VIAL ONE (10:38)
[2017-11-21] MEDS ORDERED: ONDANSETRON 4 MG/2 ML (SDV) Z0FRAN IVP PRN (10:45)
[2017-11-21] MEDS ORDERED: MEPERIDINE (DEMEROL) INJ 50 MG/ML IVP PRN (10:45)
[2017-11-21] MEDS ORDERED: morphine INJ 10 MG/ML 1ML (SYR OR VIAL) IVP PRN (10:45)
[2017-11-21 11:35] VITALS: BP 131/86
[2017-11-21 12:05] VITALS: BP 136/98
[2017-11-21 12:06] VITALS: BP 136/98
[2017-11-21 12:35] VITALS: BP 130/91
== END 2017-11-21 12:40 | disposition home or self-care (01) ==
LOC: SDC 07:25
PROVIDERS: ATTEND Surgery
DX: L72.3 Sebaceous cyst (principal); I10 Essential (primary) hypertension; Z79.899 Other long term (current) drug therapy
CPT/HCPCS: 87081

== ENCOUNTER 2018-04-28 11:04 | Emergency (ER) | payer MEDICARE, MEDICAID ==
[~2018-04-28] VITALS: Ht 190.5 cm; Wt 111.1 kg
[2018-04-28] MEDS ORDERED: CLINDAMYCIN 900 MG/50 ML IVPB 50 ML IV ONE (12:00)
[2018-04-28] MEDS ORDERED: KETOROLAC 30 MG/ML VIAL IVP ONE (12:00)
--- NOTE | 2018-04-28 12:04 | ED EENT ---
History of Present Illness General Chief Complaint: General Problems/Pain Stated Complaint: SWOLLEN GLAND UNDER TONGUE Nursing Triage Note: TO ROOM REPORTS SINCE YESTERDAY HAS HAD R JAW PAIN AND SWELLING HAS HAD THIS IN THE PAST AND WAS PUT ON ANTIBIOTICS WAS TOLD HE HAD A CLOGGED GLAND Source: patient Exam Limitations: no limitations History of Present Illness Date Seen by Provider: Apr 28, 2018 Time Seen by Provider: 11:37 Initial Comments This 47-year-old man presents to the emergency room with pain along the right side of the jaw and under the tongue from a swollen and inflamed salivary gland. He has had multiple episodes of this throughout his life. He has been treated with a variety of antibiotics that seemed to resolve the problem. Today is the worst case he has had and he presents to the emergency room because it is Sunday and Dr. Flores's office is not open. He denies fever. He states the pain and swelling increases significantly when he eats. His sublingual gland is markedly edematous, indurated, erythematous, and painful. His lymph nodes on the right side of the neck are also tender. Allergies and Home Medications Allergies Coded Allergies: No Known Drug Allergies (Unverified , 05/19/10) Home Medications Clindamycin HCl 300 Mg Capsule, 300 MG PO QID Prescribed by: IGLESIA BURNS on 04/28/18 1325 Hydrocodone/Acetaminophen 1 Each Tablet, 1 EACH PO Q4-6HR PRN for PAIN-MODERATE Prescribed by: IGLESIA BURNS on 04/28/18 1325 Lisinopril 10 Mg Tablet, 10 MG PO DAILY, (Reported) Patient Home Medication List Home Medication List Reviewed: Yes Review of Systems Review of Systems Constitutional: no symptoms reported Eyes: No Symptoms Reported Ears: No Symptoms Reported Nose: no symptoms reported Mouth: see HPI Throat: see HPI Respiratory: no symptoms reported Cardiovascular: no symptoms reported Gastrointestinal: no symptoms reported Musculoskeletal: no symptoms reported Skin: no symptoms reported Neurological: No Symptoms Reported Hematologic/Lymphatic: No Symptoms Reported Past Wlztinp-Dvybgk-Sparmt Hx Patient Social History Alcohol Use: Denies Use Recreational Drug Use: No Drug of Choice: THC- occasional Smoking Status: Never a Smoker Recent Foreign Travel: No Contact w/Someone Who Travel: No Recent Infectious Disease Expo: No Recent Hopitalizations: No Immunizations Up To Date Tetanus Booster (TDap): Unknown PED Vaccines UTD: No Date of Influenza Vaccine: Jul 14, 2017 Seasonal Allergies Seasonal Allergies: No Past Medical History Surgeries: Yes (HERNIA REPAIR, HIPRIGHT, RIGHT LEG RIGHT SHOULDER) Abdominal, Orthopedic Respiratory: No Cardiac: Yes Hypertension Neurological: No Reproductive Disorders: No Sexually Transmitted Disease: Yes (syphilis at age 16) Genitourinary: No Gastrointestinal: No Musculoskeletal: Yes Back Injury Endocrine: No HEENT: No Cancer: No Psychosocial: No Integumentary: No Blood Disorders: No Family Medical History Patient reports no known family medical history. Heart Disease, Cancer Physical Exam Vital Signs Vital Signs - First Documented 04/28/18 11:28 Temp 96.4 Pulse 80 Resp 18 B/P (MAP) 156/100 (118) Pulse Ox 98 O2 Delivery Room Air Height, Weight, BMI Height: 6'3.00" Weight: 245lbs. 0.0oz. 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 No stone is palpable as the entire gland is very firm. Lymph nodes on the right side of the neck are tender.) Neck: lymphadenopathy (R) Cardiovascular: regular rate, rhythm, no edema, no murmur Respiratory: lungs clear, normal breath sounds, no respiratory distress, no accessory muscle use Neurologic/Psychiatric: supervisor felting II-XII nml as tested, no motor/sensory deficits, alert, normal mood/affect, oriented x 3 Skin: normal color, warm/dry Progress/Results/Core Measures Results/Orders Lab Results Laboratory Tests Test 04/28/18 12:04 Range/Units White Blood Count 7.3 4.3-11.0 10^3/uL Red Blood Count 5.12 4.35-5.85 10^6/uL Hemoglobin 17.2 13.3-17.7 G/DL Hematocrit 48 40-54 % Mean Corpuscular Volume 93 80-99 FL Mean Corpuscular Hemoglobin 34 25-34 PG Mean Corpuscular Hemoglobin Concent 36 32-36 G/DL Red Cell Distribution Width 12.3 10.0-14.5 % Platelet Count 216 130-400 10^3/uL Mean Platelet Volume 10.7 H 7.4-10.4 FL Neutrophils (%) (Auto) 45 42-75 % Lymphocytes (%) (Auto) 42 12-44 % Monocytes (%) (Auto) 8 0-12 % Eosinophils (%) (Auto) 5 0-10 % Basophils (%) (Auto) 1 0-10 % Neutrophils # (Auto) 3.2 1.8-7.8 X 10^3 Lymphocytes # (Auto) 3.0 1.0-4.0 X 10^3 Monocytes # (Auto) 0.6 0.0-1.0 X 10^3 Eosinophils # (Auto) 0.4 H 0.0-0.3 10^3/uL Basophils # (Auto) 0.1 0.0-0.1 10^3/uL Sodium Level 140 135-145 MMOL/L Potassium Level 4.2 3.6-5.0 MMOL/L Chloride Level 107 98-107 MMOL/L Carbon Dioxide Level 21 21-32 MMOL/L Anion Gap 12 5-14 MMOL/L Blood Urea Nitrogen 8 7-18 MG/DL Creatinine 0.76 0.60-1.30 MG/DL Estimat Glomerular Filtration Rate > 60 BUN/Creatinine Ratio 11 Glucose Level 109 H 70-105 MG/DL Calcium Level 9.9 8.5-10.1 MG/DL C-Reactive Protein High Sensitivity 0.14 0.00-0.50 MG/DL My Orders Orders - IGLESIA SOTELO MD Basic Metabolic Panel (04/28/18 11:51) Cbc With Automated Diff (04/28/18 11:51) Hs C Reactive Protein (04/28/18 11:51) Ct Neck (Soft Tissue) W (04/28/18 11:51) Clindamycin 900 Mg/50 Ml Ivpb (Cleocin P (04/28/18 12:00) Ketorolac Injection (Toradol Injection) (04/28/18 12:00) Iohexol Injection (Omnipaque 350 Mg/Ml 1 (04/28/18 12:15) Contrast Received (Contrast Received) (04/28/18 12:15) Ns (Ivpb) (Sodium Chloride 0.9%) (04/28/18 12:15) Medications Given in ED Current Medications Medications Dose Ordered Sig/Debra Route Start Time Stop Time Status Last Admin Dose Admin Clindamycin Phosphate/Dextrose 50 ml @ 100 mls/hr ONCE ONCE IV 04/28/18 12:00 04/28/18 12:29 DC 04/28/18 12:32 100 MLS/HR Iohexol 75 ml ONCE ONCE IV 04/28/18 12:15 04/28/18 12:17 DC 04/28/18 12:24 75 ML Ketorolac Tromethamine 15 mg ONCE ONCE IVP 04/28/18 12:00 04/28/18 12:01 DC 04/28/18 12:09 15 MG Sodium Chloride 250 ml ONCE ONCE IV 04/28/18 12:15 04/28/18 12:17 DC 04/28/18 12:24 80 ML Vital Signs/I&O 04/28/18 04/28/18 11:28 13:29 Temp 96.4 Pulse 80 82 Resp 18 18 B/P (MAP) 156/100 (118) 150/90 (110) Pulse Ox 98 98 O2 Delivery Room Air Blood Pressure Mean: 118 Progress Progress Note #1: Time: 12:07 Progress Note Case was discussed with Kayleigh Hart, on-call provider for Dr. Robert. She recommended further evaluation with CT scan to evaluate for stones. She also recommended treatment with clindamycin and requested labs. CT has been ordered along with clindamycin 900 mg IV. Basic labs will be pulled. Pain will be treated with Toradol. Progress Note #2: Time: 18:26 Progress Note Patient was dismissed home after treatment of pain and a dose of IV clindamycin. Results of the CT were communicated with Kayleigh Hart with Dr. Robert's clinic. She returned a phone call after patient departed asking for him to bring a CD of the images with him to an appointment at 10 o'clock tomorrow. As of the time of this note, I was unable to reach the patient to convey that information. At the time of discharge she was planning to call Dr. Robert's office first thing in the morning. I did leave a message with patient' s mother for him to call me. Diagnostic Imaging Diagonstic Imaging: CT Plain Films/CT/US/NM/MRI: other (soft tissues of the neck) Comments CT soft tissues neck viewed by me and report reviewed. See report below: NAME: MIKE FINK MED REC#: [id number] PT STATUS: DEP ER : 1970 PHYSICIAN: IGLESIA SOTELO MD ADMIT DATE: 04/28/18/ER Signed Date of Exam: 04/28/18 CT NECK (SOFT TISSUE) W PROCEDURE: CT neck soft tissue with contrast. TECHNIQUE: Multiple contiguous axial images were obtained through the neck after the administration of contrast. INDICATION: Swelling and throat pain. History of cyst in posterior neck. FINDINGS: The visualized intracranial contents are unremarkable. There is no abnormal enhancement. The visualized portion of the paranasal sinuses appear clear without air-fluid level. The visualized portion of the mastoids and the middle ear appear clear. The posterior nasopharynx and oropharynx appear appropriately symmetric without evidence of displacement of the parapharyngeal fat planes. There is no abnormal process demonstrated within the prevertebral or retropharyngeal space. There is no abnormal thickening of the epiglottis. The vallecula and piriform sinuses appear aerated. The vocal folds appear symmetric. Subglottic trachea unremarkable. The parotid glands unremarkable. The submandibular glands demonstrate some slight enlargement of the right relative to the left. There also appears to be some minimal edema around the right submandibular gland and prominence of the right submandibular duct. There is a large radiodense sialolith demonstrated at the anterior aspect of the right submandibular duct. The findings are therefore most compatible with a right-sided submandibular sialoadenitis. The thyroid is unremarkable. There are scattered non-pathologically enlarged cervical lymph nodes. The lung apices demonstrate features of paraseptal emphysema. There are minimal degenerative endplate changes within the cervical spine but no acute or suspicious osseous abnormality. IMPRESSION: 1. Large radiodense sialolith demonstrated at the anterior right submandibular duct orifice measuring up to 12 mm. There is proximal submandibular gland ductal dilatation as well as some mild enlargement and edema at the submandibular gland itself. There is no evidence of a ranula. 2. Left submandibular gland and parotid glands unremarkable. 3. Aerodigestive tract appears appropriately symmetric. 4. No pathologic adenopathy. Dictated by: Dictated on workstation # [id number] Dict: 04/28/18 1235 Trans: 04/28/18 1420 Interpreted by: GAVINO HAINES MD Electronically signed by: GAVINO HAINES MD 04/28/18 1420 Departure Impression Primary Impression: Sialolithiasis Additional Impression: Sialadenitis Disposition: HOME, SELF-CARE Condition: Improved Departure-Patient Inst. Decision time for Depature: 13:05 Referrals: BUBBA ROBERT MD, RICHARD A DO (PCP/Family) Primary Care Physician Patient Instructions: Salivary Gland Infection Add. Discharge Instructions: Take your antibiotics as prescribed. For pain use ibuprofen up to 600 mg every 6 hours as needed. Add hydrocodone as prescribed for additional pain relief. Call Dr. Robert's office on Sunday morning to arrange follow-up. Return to care if you have worsening symptoms. All discharge instructions reviewed with patient and/or family. Voiced understanding. Scripts Hydrocodone/Acetaminophen (Hydrocodone-Acetamin 5-325 mg) 1 Each Tablet 1 EACH PO Q4-6HR PRN for PAIN-MODERATE, #20 TAB Prov: IGLESIA SOTELO MD 04/28/18 Clindamycin HCl (Clindamycin HCl) 300 Mg Capsule 300 MG PO QID, #40 CAP Prov: IGLESIA SOTELO MD 04/28/18 Copy Copies To 1: MIKE FLORES DO Copies To 2: BUBBA ROBERT MD, JOSHUA T MD Apr 28, 2018 12:04
[2018-04-28 12:15] LABS: BASOPHILS # (AUTO) 0.1 10^3/uL (0.0-0.1); BASOPHILS % (AUTO) 1 % (0-10); EOSINOPHILS # (AUTO) 0.4 10^3/uL (0.0-0.3); EOSINOPHILS % (AUTO) 5 % (0-10); HEMATOCRIT 48 % (40-54); HEMOGLOBIN 17.2 G/DL (13.3-17.7); LYMPHOCYTES % (AUTO) 42 % (12-44); MEAN CORPUSCULAR HEMOGLOBIN 34 PG (25-34); MEAN CORPUSCULAR HGB CONC 36 G/DL (32-36); MEAN CORPUSCULAR VOLUME 93 FL (80-99); MEAN PLATELET VOLUME 10.7 FL (7.4-10.4); MONOCYTES # (AUTO) 0.6 X 10^3 (0.0-1.0); MONOCYTES % (AUTO) 8 % (0-12); NEUTROPHILS # (AUTO) 3.2 X 10^3 (1.8-7.8); NEUTROPHILS % (AUTO) 45 % (42-75); PLATELET COUNT 216 10^3/uL (130-400); RED BLOOD COUNT 5.12 10^6/uL (4.35-5.85); RED CELL DISTRIBUTION WIDTH 12.3 % (10.0-14.5); WHITE BLOOD COUNT 7.3 10^3/uL (4.3-11.0)
[2018-04-28] MEDS ORDERED: NS 250 ML (IVPB) BAG IV ONE (12:15)
[2018-04-28] MEDS ORDERED: IOHEXOL 350 MG/ML 100 ML (OMNIPAQUE 350) VIAL IV ONE (12:15)
[2018-04-28] MEDS ORDERED: RECEIVED CONTRAST (Hold Metformin) IV SCH (12:15)
[2018-04-28 12:49] LABS: BUN/CREATININE RATIO 11; CALCIUM 9.9 MG/DL (8.5-10.1); CARBON DIOXIDE 21 MMOL/L (21-32); CHLORIDE 107 MMOL/L (98-107); CREATININE SERUM 0.76 MG/DL (0.60-1.30); GFR ESTIMATED > 60; GLUCOSE 109 MG/DL (70-105); POTASSIUM 4.2 MMOL/L (3.6-5.0); SODIUM 140 MMOL/L (135-145)
--- NOTE | 2018-04-28 12:52 | Diagnostic Imaging Report ---
PROCEDURE: CT neck soft tissue with contrast. TECHNIQUE: Multiple contiguous axial images were obtained through the neck after the administration of contrast. INDICATION: Swelling and throat pain. History of cyst in posterior neck. FINDINGS: The visualized intracranial contents are unremarkable. There is no abnormal enhancement. The visualized portion of the paranasal sinuses appear clear without air-fluid level. The visualized portion of the mastoids and the middle ear appear clear. The posterior nasopharynx and oropharynx appear appropriately symmetric without evidence of displacement of the parapharyngeal fat planes. There is no abnormal process demonstrated within the prevertebral or retropharyngeal space. There is no abnormal thickening of the epiglottis. The vallecula and piriform sinuses appear aerated. The vocal folds appear symmetric. Subglottic trachea unremarkable. The parotid glands unremarkable. The submandibular glands demonstrate some slight enlargement of the right relative to the left. There also appears to be some minimal edema around the right submandibular gland and prominence of the right submandibular duct. There is a large radiodense sialolith demonstrated at the anterior aspect of the right submandibular duct. The findings are therefore most compatible with a right-sided submandibular sialoadenitis. The thyroid is unremarkable. There are scattered non-pathologically enlarged cervical lymph nodes. The lung apices demonstrate features of paraseptal emphysema. There are minimal degenerative endplate changes within the cervical spine but no acute or suspicious osseous abnormality. IMPRESSION: 1. Large radiodense sialolith demonstrated at the anterior right submandibular duct orifice measuring up to 12 mm. There is proximal submandibular gland ductal dilatation as well as some mild enlargement and edema at the submandibular gland itself. There is no evidence of a ranula. 2. Left submandibular gland and parotid glands unremarkable. 3. Aerodigestive tract appears appropriately symmetric. 4. No pathologic adenopathy. Dictated by: Dictated on workstation # [id number]
[2018-04-28] MEDS ORDERED: HYDR-3812 PO (13:25)
[2018-04-28] MEDS ORDERED: CLIN300C11 PO (13:25)
[2018-04-28 13:29] VITALS: BP 150/90
== END 2018-04-28 13:29 | disposition home or self-care (01) ==
LOC: EDUNIT# 11:04 → ER 11:05
DX: K11.5 Sialolithiasis (principal); K11.20 Sialoadenitis, unspecified; I10 Essential (primary) hypertension; F12.10 Cannabis abuse, uncomplicated; Z86.19 Personal history of other infectious and parasitic diseases; Z98.890 Other specified postprocedural states; Z82.49 Family history of ischemic heart disease and other diseases of the circulatory system
CPT/HCPCS: 36415; 70491; 80048; 85025; 86141; 96365; 96375

== ENCOUNTER 2018-04-30 06:07 | Outpatient (CLI) | payer MEDICARE, MEDICAID ==
[~2018-04-30] VITALS: Ht 190.5 cm; Wt 111.1 kg
[~2018-04-30 06:07] MED LIST changes: +CLIN300C11 PO; +HYDR-3812 PO
[2018-04-30] MEDS ORDERED: AMLO5TAB7 PO (12:17)
== END 2018-04-30 12:43 | disposition home or self-care (01) ==
LOC: PREOP 06:07
PROVIDERS: ATTEND Otolaryngology Otolaryngology/Facial Plastic Surgery
DX: Z01.818 Encounter for other preprocedural examination (principal)

== ENCOUNTER 2018-05-01 07:28 | Day surgery (SDC) | payer MEDICARE, MEDICAID ==
[~2018-05-01] VITALS: Ht 190.5 cm; Wt 107.7 kg
[~2018-05-01 07:28] MED LIST changes: +AMLO5TAB7 PO
[2018-05-01] MEDS ORDERED: LACTATED RINGERS 1,000 ML IV PRN (07:39)
[2018-05-01 08:06] VITALS: BP 163/115
[2018-05-01] MEDS ORDERED: LIDOCAINE PF 2% 5 ML (XYLOCAINE) VIAL ONE (08:22)
[2018-05-01] MEDS ORDERED: DEXAMETHASONE 10 MG/ML (DECADRON) 1 ML VIAL ONE (08:22)
[2018-05-01] MEDS ORDERED: proPOfol 200 MG/20 ML (DIPRIVAN) VIAL IV ONE (08:22)
[2018-05-01] MEDS ORDERED: ROCURONIUM 10 MG/ML 5 ML SYRINGE IV ONE (08:22)
[2018-05-01] MEDS ORDERED: SEVOFLURANE (ULTANE) 15 ML INHAL SOLN ONE (08:22)
[2018-05-01] MEDS ORDERED: ONDANSETRON 4 MG/2 ML (SDV) Z0FRAN ONE (08:22)
[2018-05-01] MEDS ORDERED: MIDAZOLAM 2 MG/2 ML (VERSED) VIAL ONE (08:23)
[2018-05-01] MEDS ORDERED: fentaNYL INJECTION 100 MCG/2 ML AMP ONE (08:23)
[2018-05-01] MEDS ORDERED: LIDOCAINE/EPI 1%-1:100,000 (XYLOCAINE) 20ML ONE (08:29)
--- NOTE | 2018-05-01 08:29 | Progress Note-Pre Operative ---
Pre-Operative Progress Note H&P Reviewed The H&P was reviewed, patient examined and no changes noted. Date Seen by Provider: May 01, 2018 Time Seen by Provider: 08:30 Date H&P Reviewed: May 01, 2018 Time H&P Reviewed: 08:30 Pre-Operative Diagnosis: Right Submandibular Duct STone BUBBA PRASAD MD May 01, 2018 8:29 am
--- NOTE | 2018-05-01 09:18 | Progress Note-Post Operative ---
Post-Operative Progess Note Surgeon (s)/Analysis Lead (s) Surgeon BUBBA PRASAD MD Analysis Lead n/a Pre-Operative Diagnosis Right Submandibular Duct STone Post-Operative Diagnosis same Post-Op Procedure Note Date of Procedure: May 01, 2018 Name of Procedure Performed: Intraoral excision of right submandibular stone Description & Findings Description and Findings: n/a Anesthesia Type get Estimated Blood Loss minimal Packing none. Specimen(s) collected/removed stone-right side BUBBA PRASAD MD May 01, 2018 9:18 am
[2018-05-01] MEDS ORDERED: GLYCOPYRROLATE 0.2 MG/ML (ROBINUL) 2 ML VIAL ONE (09:23)
[2018-05-01] MEDS ORDERED: NEOSTIGMINE 1 MG/ML 5 ML SYRINGE ONE (09:23)
[2018-05-01] MEDS ORDERED: ACETAMINOPHEN 325 MG TABLET PO PRN (09:30)
[2018-05-01] MEDS ORDERED: HYDROcodone/APAP 5 MG/325 MG (LORTAB) TAB PO PRN (09:30)
[2018-05-01 10:20] VITALS: BP 136/105
[2018-05-01 10:50] VITALS: BP 146/109
--- NOTE | 2018-05-01 10:54 | Anesthesia-General Post-Op ---
General Patient Condition Mental Status/LOC: Same as Preop Cardiovascular: Satisfactory Nausea/Vomiting: Absent Respiratory: Satisfactory Pain: Controlled Complications: Absent Post Op Complications Complications None Follow Up Care/Instructions Patient Instructions None needed. Anesthesia/Patient Condition Patient Condition Patient is doing well, no complaints, stable vital signs, no apparent adverse anesthesia problems. No complications reported per nursing. THERON SCRUGGS CRNA May 01, 2018 10:54
[2018-05-01 11:20] VITALS: BP 164/105
== END 2018-05-01 11:25 | disposition home or self-care (01) ==
LOC: SDC 07:28
PROVIDERS: ATTEND Otolaryngology Otolaryngology/Facial Plastic Surgery
DX: K11.5 Sialolithiasis (principal); Z11.2 Encounter for screening for other bacterial diseases; I10 Essential (primary) hypertension; Z79.899 Other long term (current) drug therapy
CPT/HCPCS: 87081; 93005

== ENCOUNTER 2019-01-13 09:02 | Emergency (ER) | payer MEDICARE, MEDICAID ==
[~2019-01-13] VITALS: Ht 190.5 cm; Wt 93.0 kg
[~2019-01-13 09:02] MED LIST changes: -AMLO5TAB7 PO; +AMLO5TAB9 PO
[2019-01-13] MEDS ORDERED: NS IV 1000 ML 1,000 ML IV ONE ×2 (09:52→18:38)
[2019-01-13 09:59] LABS: BASOPHILS # (AUTO) 0.1 10^3/uL (0.0-0.1); BASOPHILS % (AUTO) 1 % (0-10); EOSINOPHILS # (AUTO) 0.3 10^3/uL (0.0-0.3); EOSINOPHILS % (AUTO) 5 % (0-10); HEMATOCRIT 47 % (40-54); HEMOGLOBIN 16.7 G/DL (13.3-17.7); LYMPHOCYTES # (AUTO) 2.4 X 10^3 (1.0-4.0); LYMPHOCYTES % (AUTO) 41 % (12-44); MEAN CORPUSCULAR HEMOGLOBIN 33 PG (25-34); MEAN CORPUSCULAR HGB CONC 36 G/DL (32-36); MEAN CORPUSCULAR VOLUME 93 FL (80-99); MONOCYTES # (AUTO) 0.5 X 10^3 (0.0-1.0); MONOCYTES % (AUTO) 8 % (0-12); NEUTROPHILS # (AUTO) 2.6 X 10^3 (1.8-7.8); NEUTROPHILS % (AUTO) 45 % (42-75); PLATELET COUNT 150 10^3/uL (130-400); RED CELL DISTRIBUTION WIDTH 12.5 % (10.0-14.5); WHITE BLOOD COUNT 5.9 10^3/uL (4.3-11.0)
[2019-01-13] MEDS ORDERED: KETOROLAC 30 MG/ML VIAL IVP ONE ×2 (10:00→14:45)
[2019-01-13 10:21] LABS: ALANINE AMINOTRANSFERASE 65 U/L (0-55); ALBUMIN 4.1 GM/DL (3.2-4.5); ALKALINE PHOSPHATASE 57 U/L (40-136); BILIRUBIN,TOTAL 0.8 MG/DL (0.1-1.0); BUN/CREATININE RATIO 13; CALCIUM 9.6 MG/DL (8.5-10.1); CARBON DIOXIDE 23 MMOL/L (21-32); CHLORIDE 107 MMOL/L (98-107); CREATININE SERUM 0.76 MG/DL (0.60-1.30); GFR ESTIMATED > 60; GLUCOSE 132 MG/DL (70-105); POTASSIUM 3.9 MMOL/L (3.6-5.0); SODIUM 139 MMOL/L (135-145); TOTAL PROTEIN 8.4 GM/DL (6.4-8.2)
[2019-01-13] MEDS ORDERED: LACTATED RINGERS 1,000 ML IV ONE (12:01)
--- NOTE | 2019-01-13 12:23 | NUR ---
PATIENT CON'T UNABLE TO GIVE UA
--- NOTE | 2019-01-13 13:09 | NUR ---
pt provided a very barely minimal ua in urinal v/o dr. walk it to lab and if they cant do both do a micro. i completed this task and lab knows. pt nurse called lab as well.
[2019-01-13 13:11] LABS: CLARITY,URINE CLEAR; COLOR,URINE YELLOW; GLUCOSE, URINE (UA) NEGATIVE (NEGATIVE); KETONES,URINE 1+ (NEGATIVE); LEUKOCYTE ESTERASE ,URINE 2+ (NEGATIVE); NITRITE,URINE POSITIVE (NEGATIVE); PH,URINE 8 (5-9); PROTEIN,URINE 2+ (NEGATIVE); UROBILINOGEN,URINE 4 MG/DL (NORMAL)
[2019-01-13 13:17] LABS: BACTERIA,URINE TRACE /HPF; BILIRUBIN,URINE 1+ (NEGATIVE); RBC,URINE RARE /HPF; SQUAMOUS EPITHELIAL CELL,UR RARE /HPF
[2019-01-13] MEDS ORDERED: fentaNYL INJECTION 100 MCG/2 ML AMP IVP ONE ×2 (13:30→15:00)
--- NOTE | 2019-01-13 14:39 | Diagnostic Imaging Report ---
PROCEDURE: CT urinary tract, rule out kidney stone. TECHNIQUE: Multiple contiguous axial images were obtained through the abdomen and pelvis without the use of intravenous contrast. Auto Exposure Controls were utilized during the CT exam to meet ALARA standards for radiation dose reduction. INDICATION: Pain. FINDINGS: There are no radiodense urinary tract stones. The unopacified urinary bladder had an unremarkable appearance. There was no perinephric or periureteric edema. The unenhanced kidneys appeared normal. There is hepatic steatosis with no biliary dilatation. There is at least one small stone in the gallbladder lumen. No pericholecystic edema. The spleen upper limits of normal for size but nonfocal at this uninfused study. The adrenals and pancreas unremarkable. The aorta is nonaneurysmal. We note that since the prior of July 2017, splenomegaly is improved. The fatty liver unchanged. There is a large left groin subcutaneous nodule unchanged from previous exam with a diameter of 4.1 cm. Subcutaneous mass in the left buttock adjacent to the gluteal fold is measuring 2.9 cm, previously 2.1 cm. The osseous structures nonacute. The lung bases clear. IMPRESSION: 1. No opaque kidney stone. No hydroureteronephrosis. There is cholelithiasis without biliary dilatation and chronic hepatic steatosis with reduction in spleen size. 2. Pelvic subcutaneous mass is unchanged in the left groin but increased in the left buttock. 3. No ascites or inflammatory process identified. No obstructive features. Dictated by: Dictated on workstation # [id number]
[2019-01-13] MEDS ORDERED: cefTRIAXone FOR IV USE 1,000 MG in WATER (STERILE) FOR INJECTION 10 ML IV ONE (14:45)
--- NOTE | 2019-01-13 16:22 | Diagnostic Imaging Report ---
INDICATION: Abdominal pain. TECHNIQUE: Gallbladder sonography performed in the routine fashion. FINDINGS: The liver shows diffuse increased echogenicity, compatible with fatty infiltration. Liver appears prominent in size. Gallbladder is distended. Gallbladder shows no definite stones. There is an apparent polyp in the gallbladder neck measuring 5 mm. Common duct was not well seen due to overlying gas. Pancreas was not well seen due to overlying gas. The right kidney was normal and measured 13 cm in length. There is no ascites. IMPRESSION: Enlarged liver with diffuse fatty infiltration. Gallbladder appears somewhat distended but shows no stones or wall thickening. There is an incidental polyp in the gallbladder neck measuring 5 mm. Common duct was not well visualized. Dictated by: Dictated on workstation # [id number]
--- NOTE | 2019-01-13 17:07 | NUR ---
DR BENOIT TO ROOM
[2019-01-13] MEDS ORDERED: LIDOCAINE UROJET 2% GEL 10 ML PKG TOP ONE (17:30)
[2019-01-13 18:45] LABS: BILIRUBIN,URINE NEGATIVE (NEGATIVE); CLARITY,URINE CLEAR; COLOR,URINE YELLOW; GLUCOSE, URINE (UA) NEGATIVE (NEGATIVE); KETONES,URINE NEGATIVE (NEGATIVE); LEUKOCYTE ESTERASE ,URINE NEGATIVE (NEGATIVE); NITRITE,URINE NEGATIVE (NEGATIVE); PH,URINE 7 (5-9); PROTEIN,URINE NEGATIVE (NEGATIVE); UROBILINOGEN,URINE 1 MG/DL (NORMAL)
[2019-01-13] MEDS ORDERED: LEVOFLOXACIN 500 MG/100 ML IV 100 ML IV ONE (18:45)
--- NOTE | 2019-01-13 18:51 | ED General ---
General Chief Complaint: Back Problems Stated Complaint: LOWER BACK PAIN Nursing Triage Note: AMB TO ROOM C/O BACK PAIN SINCE LAST NIGHT NO INJURY HAS NOT TRIED OTC PAIN MEDS. REPORTS WHEN STANDNG PAIN BETTER. Nursing Sepsis Screen: No Definite Risk Source of Information: Patient Exam Limitations: No Limitations (IGLESIA SOTELO MD) History of Present Illness Date Seen by Provider: Jan 13, 2019 Time Seen by Provider: 09:36 Initial Comments This 48-year-old man presents to the emergency room with complaints of pain in the right flank area and right lower back that started yesterday. It was initially intermittent but then woke him up with severe exacerbation around 03:00. He reports his urine is sometimes dark in color. Pain was reportedly 9 out of 10 earlier but has improved to 6 out of 10 now. He is afebrile. (IGLESIA SOTELO MD) Allergies and Home Medications Allergies Coded Allergies: No Known Drug Allergies (Unverified , 05/01/18) Home Medications Amlodipine Besylate 5 Mg Tablet, 5 MG PO DAILY, (Reported) Clindamycin HCl 300 Mg Capsule, 300 MG PO QID Prescribed by: IGLESIA BURNS on 04/28/18 1325 Hydrocodone/Acetaminophen 1 Each Tablet, 1 EACH PO Q4-6HR PRN for PAIN-MODERATE Prescribed by: IGLESIA BURNS on 04/28/18 1325 Levofloxacin 500 Mg Tablet, 500 MG PO DAILY Prescribed by: ELLY QUINONES on 01/13/19 1856 Lisinopril 10 Mg Tablet, 10 MG PO DAILY, (Reported) Patient Home Medication List Home Medication List Reviewed: Yes (IGLESIA SOTELO MD) Review of Systems Review of Systems Constitutional: no symptoms reported EENTM: no symptoms reported Respiratory: no symptoms reported Cardiovascular: no symptoms reported Gastrointestinal: see HPI Genitourinary: see HPI Musculoskeletal: see HPI Skin: no symptoms reported Psychiatric/Neurological: No Symptoms Reported Hematologic/Lymphatic: No Symptoms Reported (IGLESIA SOTELO MD) Past Xmhjrxr-Qbswgu-Zpgcuk Hx Patient Social History Alcohol Use: Denies Use Recreational Drug Use: No Drug of Choice: THC- occasional Smoking Status: Never a Smoker Recent Foreign Travel: No Contact w/Someone Who Travel: No Recent Infectious Disease Expo: No Recent Hopitalizations: No (IGLESIA SOTELO MD) Immunizations Up To Date Tetanus Booster (TDap): Unknown PED Vaccines UTD: No Date of Influenza Vaccine: Jul 14, 2017 (IGLESIA SOTELO MD) Seasonal Allergies Seasonal Allergies: No (IGLESIA SOTELO MD) Past Medical History Surgeries: Yes (HERNIA REPAIR, HIPRIGHT, RIGHT LEG RIGHT SHOULDER, robby cyst) Abdominal, Orthopedic Respiratory: No Cardiac: Yes Hypertension Neurological: No Reproductive Disorders: No Sexually Transmitted Disease: Yes (syphilis at age 16) Genitourinary: No Gastrointestinal: No Musculoskeletal: Yes Back Injury Endocrine: No HEENT: Yes (Right eye injury) Cancer: No Psychosocial: No Integumentary: No Blood Disorders: No (IGLESIA SOTELO MD) Family Medical History Patient reports no known family medical history. Heart Disease, Cancer (IGLESIA SOTELO MD) Physical Exam Vital Signs Vital Signs - First Documented 01/13/19 09:08 Temp 97.1 Pulse 82 Resp 18 B/P (MAP) 173/120 (137) Pulse Ox 100 O2 Delivery Room Air (ELLY QUINONES MD) Vital Signs Capillary Refill : Less Than 3 Seconds (IGLESIA SOTELO MD) Height, Weight, BMI Height: 6'3.00" Weight: 205lbs. 6.0oz. 92.293766kt; 29.7 BMI Method:Stated General Appearance: WD/WN, Mild Distress HEENT: PERRL/EOMI, Normal ENT Inspection Neck: Normal Inspection Respiratory: Lungs Clear, Normal Breath Sounds, No Accessory Muscle Use, No Respiratory Distress Cardiovascular: Regular Rate, Rhythm, No Edema, No Murmur Gastrointestinal: Normal Bowel Sounds, Non Tender, Soft Back: Normal Inspection, CVA Tenderness (R), Other (Right lower back tenderness) Extremity: Normal Capillary Refill, Normal Inspection Neurologic/Psychiatric: Alert, Oriented x3, No Motor/Sensory Deficits, Normal Mood/Affect, global president II-XII Norm as Tested Skin: Normal Color, Warm/Dry (IGLESIA SOTELO MD) Progress/Results/Core Measures Suspected Sepsis Recent Fever Within 48 Hours: No Infection Criteria Present: None New/Unexplained Altered Menta: No Sepsis Screen: No Definite Risk SIRS Temperature:97.1 Pulse: 82 Respiratory Rate: 18 Laboratory Tests 01/13/19 09:52: White Blood Count 5.9 Blood Pressure 173 /120 Mean: 137 Laboratory Tests 01/13/19 09:52: Creatinine 0.76, Platelet Count 150, Total Bilirubin 0.8 (IGLESIA SOTELO MD) Results/Orders Lab Results Laboratory Tests Test 01/13/19 09:52 01/13/19 13:05 01/13/19 18:00 Range/Units White Blood Count 5.9 4.3-11.0 10^3/uL Red Blood Count 5.04 4.35-5.85 10^6/uL Hemoglobin 16.7 13.3-17.7 G/DL Hematocrit 47 40-54 % Mean Corpuscular Volume 93 80-99 FL Mean Corpuscular Hemoglobin 33 25-34 PG Mean Corpuscular Hemoglobin Concent 36 32-36 G/DL Red Cell Distribution Width 12.5 10.0-14.5 % Platelet Count 150 130-400 10^3/uL Mean Platelet Volume 11.0 H 7.4-10.4 FL Neutrophils (%) (Auto) 45 42-75 % Lymphocytes (%) (Auto) 41 12-44 % Monocytes (%) (Auto) 8 0-12 % Eosinophils (%) (Auto) 5 0-10 % Basophils (%) (Auto) 1 0-10 % Neutrophils # (Auto) 2.6 1.8-7.8 X 10^3 Lymphocytes # (Auto) 2.4 1.0-4.0 X 10^3 Monocytes # (Auto) 0.5 0.0-1.0 X 10^3 Eosinophils # (Auto) 0.3 0.0-0.3 10^3/uL Basophils # (Auto) 0.1 0.0-0.1 10^3/uL Sodium Level 139 135-145 MMOL/L Potassium Level 3.9 3.6-5.0 MMOL/L Chloride Level 107 98-107 MMOL/L Carbon Dioxide Level 23 21-32 MMOL/L Anion Gap 9 5-14 MMOL/L Blood Urea Nitrogen 10 7-18 MG/DL Creatinine 0.76 0.60-1.30 MG/DL Estimat Glomerular Filtration Rate > 60 BUN/Creatinine Ratio 13 Glucose Level 132 H 70-105 MG/DL Calcium Level 9.6 8.5-10.1 MG/DL Corrected Calcium 9.5 8.5-10.1 MG/DL Total Bilirubin 0.8 0.1-1.0 MG/DL Aspartate Amino Transf (AST/SGOT) 47 H 5-34 U/L Alanine Aminotransferase (ALT/SGPT) 65 H 0-55 U/L Alkaline Phosphatase 57 40-136 U/L Total Protein 8.4 H 6.4-8.2 GM/DL Albumin 4.1 3.2-4.5 GM/DL Urine Color YELLOW YELLOW Urine Clarity CLEAR CLEAR Urine pH 8 7 5-9 Urine Specific [place] 1.015 L 1.010 L 1.016-1.022 Urine Protein 2+ H NEGATIVE NEGATIVE Urine Glucose (UA) NEGATIVE NEGATIVE NEGATIVE Urine Ketones 1+ H NEGATIVE NEGATIVE Urine Nitrite POSITIVE H NEGATIVE NEGATIVE Urine Bilirubin 1+ H NEGATIVE NEGATIVE Urine Urobilinogen 4 H 1 NORMAL MG/DL Urine Leukocyte Esterase 2+ H NEGATIVE NEGATIVE Urine RBC (Auto) 1+ H NEGATIVE NEGATIVE Urine RBC RARE RARE /HPF Urine WBC 2-5 RARE /HPF Urine Squamous Epithelial Cells RARE NONE /HPF Urine Crystals NONE NONE /LPF Urine Bacteria TRACE TRACE /HPF Urine Casts NONE NONE /LPF Urine Mucus MODERATE H SMALL H /LPF Urine Culture Indicated YES NO (ELLY QUINONES MD) Medications Given in ED Current Medications Medications Dose Ordered Sig/Debra Route Start Time Stop Time Status Last Admin Dose Admin Ceftriaxone Sodium 1000 mg/ Sterile Water 10 ml @ 200 mls/hr ONCE ONCE IV 01/13/19 14:45 01/13/19 14:47 DC 01/13/19 14:53 200 MLS/HR Fentanyl Citrate 75 mcg ONCE ONCE IVP 01/13/19 13:30 01/13/19 13:31 DC 01/13/19 13:36 75 MCG Fentanyl Citrate 75 mcg ONCE ONCE IVP 01/13/19 15:00 01/13/19 15:01 DC 01/13/19 15:07 75 MCG Ketorolac Tromethamine 15 mg ONCE ONCE IVP 01/13/19 10:00 01/13/19 10:01 DC 01/13/19 10:03 15 MG Ketorolac Tromethamine 15 mg ONCE ONCE IVP 01/13/19 14:45 01/13/19 14:46 DC 01/13/19 14:52 15 MG Lactated Ringer's 1,000 ml @ 0 mls/hr Q0M ONCE IV 01/13/19 12:01 01/13/19 12:02 DC 01/13/19 12:15 1,000 MLS/HR Levofloxacin/ Dextrose 100 ml @ 100 mls/hr ONCE ONCE IV 01/13/19 18:45 01/13/19 19:44 01/13/19 18:51 100 MLS/HR Lidocaine HCl 10 ml ONCE ONCE TOP 01/13/19 17:30 01/13/19 17:31 DC 01/13/19 17:47 10 ML Sodium Chloride 1,000 ml @ 0 mls/hr Q0M ONCE IV 01/13/19 09:52 01/13/19 09:53 DC 01/13/19 10:03 1,000 MLS/HR Sodium Chloride 1,000 ml @ 0 mls/hr Q0M ONCE IV 01/13/19 18:38 01/13/19 18:40 DC 01/13/19 18:51 0 MLS/HR (LELY QUINONES MD) Vital Signs/I&O 01/13/19 09:08 Temp 97.1 Pulse 82 Resp 18 B/P (MAP) 173/120 (137) Pulse Ox 100 O2 Delivery Room Air (ELLY QUINONES MD) Vital Signs/I&O Capillary Refill : Less Than 3 Seconds (IGLESIA SOTELO MD) Blood Pressure Mean: 137 Progress Note #1: Time: 13:31 Progress Note Patient initially could not urinate. He received IV fluids and eventually was able to produce a minute amount of urine. No blood was found on repeat evaluation patient was found to have increasing right lower back pain that radiated around to the right groin. For a brief time this radiated into the testicle area as well. These symptoms seem to be consistent with ureteral stone. CT was discussed with the patient and he elected to proceed with CT scan. Fentanyl was added for pain control. Progress Note #2: Time: 15:[address] revealed no significant abnormalities. In particular, no evidence of ureteral stone was identified. Patient was reexamined and now found to have right upper quadrant tenderness. Further evaluation with ultrasound was pursued. There was suspicion of cholelithiasis based on CT results. Patient will receive Rocephin for possible urinary tract infection. Progress Note #3: Time: 18:50 Progress Note Care of this patient has been assumed by Dr. Quinones who has also examined the patient and is attending to his disposition and discharge. Ultrasound revealed possible gallbladder neck polyp. Patient was seen by Dr. Benoit who recommended pain management and outpatient follow-up. He did not believe there was an emergent surgical problem. Patient is having painful urges to urinate but is not able to produce any urine despite 2 L of IV fluid. Urinary retention is suspected. (IGLESIA SOTELO MD) Progress Note : Progress Note 1850: I have reexamined the patient including testicular exam. Patient has Oseguera catheter in place and states that his pain is decreased. He is draining dark yellow urine. Repeat UA has been ordered. On evaluation, patient does not have any significant testicular swelling. He retains cremasteric reflex bilateral. I have reviewed his labs and neurological evaluation. At this point it does appear to be urinary tract infection and I suspect epididymitis. We will get repeat ultrasound in the morning as an outpatient. I did discuss all the findings concerns with the patient and family and we will continue treatment for this. Levaquin 500 mg by mouth given. We will repeat fluids bolus with normal saline 1 L bolus now. Oseguera catheter will be converted to leg bag with the anticipation of removal here in the emergency department or Dr. Flores's office on Sunday. This is all discussed with patient and family who agree. Discharged home with return precautions. Patient verbalize understanding instructions and agreement with plan. (ELLY QUINONES MD) Departure Impression Primary Impression: Right flank pain Additional Impressions: Acute urinary tract infection Epididymitis, right Urinary retention Disposition: 01 HOME, SELF-CARE Condition: Improved Departure-Patient Inst. Decision time for Depature: 18:57 (ELLY QUINONES MD) Referrals: MIKE FLORES DO (PCP/Family) Primary Care Physician Patient Instructions: Acute Abdomen (Belly Pain), Epididymitis, How to Care for Your Oseguera Catheter, Male, Urinary Tract Infection, Adult (DC) Add. Discharge Instructions: All discharge instructions reviewed with patient and/or family. Voiced understanding. Take medications as directed. Follow-up with your DrMichael in a few days for recheck. Return for worse pain, fever, vomiting, weakness, breathing problems or other concerns as needed. You will keep the Oseguera catheter in place until at least Sunday. You may follow-up with your doctor or return here for Oseguera catheter removal. You need to get outpatient ultrasound of the testicle. You need to return to the hospital tomorrow morning at 7:30 for outpatient ultrasound. You can check in with outpatient registration for this procedure. Return for worse pain, fever, vomiting, weakness, breathing problems or other concerns as needed. You may take ibuprofen 600 mg every 8 hours as needed for fever or pain. You may take Tylenol/acetaminophen 1000 mg every 8 hours as needed for fever or pain. You may take these together. Drink plenty of fluids. You should decrease your tea consumption and increase your water consumption. Scripts Levofloxacin (Levofloxacin) 500 Mg Tablet 500 MG PO DAILY, #9 TAB 0 Refills Prov: ELLY QUINONES MD 01/13/19 Copy Copies To 1: MIKE FLORES DO Copies To 2: CARA BENOIT JOSHUA T MD Jan 13, 2019 18:51 ELLY QUINONES MD Jan 13, 2019 18:59
[2019-01-13 18:52] LABS: BACTERIA,URINE TRACE /HPF; RBC,URINE RARE /HPF; WBC,URINE RARE /HPF
[2019-01-13] MEDS ORDERED: LEVO500T80 PO (18:56)
--- NOTE | 2019-01-13 20:18 | Consultation - Surgery ---
History of Present Illness History of Present Illness Patient Consulted On(rhonda/time) 01/13/19 20:15 Time Seen by Provider: 17:27 History of Present Illness Surgery asked to consult regarding flank pain; ??RUQ pain. HPI: Pt is a 48 yo male who presented to ER with complaints of back pain. Pain started last night; "woke me from sleep and has gotten worse". Pt states it started in his back, while in the ER it was for a short amount of time in his stomach, but now it is all in his right testicle. Pt also complains that he "can't pee"; although he did this am, can't since then. He was only able to urinate a very tiny amount for the urine specimen. Nothing has made this pain better. It is a sharp stabbing pain. Allergies and Home Medications Allergies Coded Allergies: No Known Drug Allergies (Unverified , 05/01/18) Home Medications Amlodipine Besylate 5 Mg Tablet, 5 MG PO DAILY, (Reported) Clindamycin HCl 300 Mg Capsule, 300 MG PO QID Prescribed by: IGLESIA BURNS on 04/28/18 1325 Hydrocodone/Acetaminophen 1 Each Tablet, 1 EACH PO Q4-6HR PRN for PAIN-MODERATE Prescribed by: IGLESIA BURNS on 04/28/18 1325 Levofloxacin 500 Mg Tablet, 500 MG PO DAILY Prescribed by: ELLY QUINONES on 01/13/19 1856 Lisinopril 10 Mg Tablet, 10 MG PO DAILY, (Reported) Patient Home Medication List Home Medication List Reviewed: Yes Past Holmnjz-Blemwe-Mohbkr Hx Patient Social History Alcohol Use: Denies Use Recreational Drug Use: No Drug of Choice: THC- occasional Smoking Status: Never a Smoker Recent Foreign Travel: No Contact w/Someone Who Travel: No Recent Infectious Disease Expo: No Recent Hopitalizations: No Immunizations Up To Date Tetanus Booster (TDap): Unknown PED Vaccines UTD: No Date of Influenza Vaccine: Jul 14, 2017 Seasonal Allergies Seasonal Allergies: No Surgeries History of Surgeries: Yes (HERNIA REPAIR, HIPRIGHT, RIGHT LEG RIGHT SHOULDER, robby cyst) Surgeries: Abdominal, Orthopedic Respiratory History of Respiratory Disorde: No Cardiovascular History of Cardiac Disorders: Yes Cardiac Disorders: Hypertension Neurological History of Neurological Disord: No Reproductive System Hx Reproductive Disorders: No Sexually Transmitted Disease: Yes (syphilis at age 16) Genitourinary History of Genitourinary Disor: No Gastrointestinal History of Gastrointestinal Di: No Musculoskeletal History of Musculoskeletal Dis: Yes Musculoskeletal Disorders: Back Injury Endocrine History of Endocrine Disorders: No HEENT History of HEENT Disorders: No Cancer History of Cancer: No Psychosocial History of Psychiatric Problem: No Integumentary History of Skin or Integumenta: No Blood Transfusions History of Blood Disorders: No Family Medical History Significant Family History: Heart Disease, Cancer Family Medial History: Patient reports no known family medical history. Review of Systems-General Constitutional: No chills, No diaphoresis, No weakness EENTM: No blurred vision, No mouth swelling, No epistaxis Respiratory: No dyspnea on exertion, No hemoptysis, No short of breath Cardiovascular: No chest pain, No edema Gastrointestinal: No dysphagia, No hematemesis, No jaundice Genitourinary: decreased output; No hematuria, No incontinence Musculoskeletal: back pain, joint swelling, muscle stiffness Skin: No change in color, No change in hair/nails Psychiatric/Neurological: Denies Anxiety, Denies Depressed, Denies Seizure, Denies Tremors Other pt denies any abnormal bleeding or bruising Physical Exam-General Problems Physical Exam Vital Signs Vital Signs - First Documented 01/13/19 09:08 Temp 97.1 Pulse 82 Resp 18 B/P (MAP) 173/120 (137) Pulse Ox 100 O2 Delivery Room Air Capillary Refill : Less Than 3 Seconds General Appearance: WD/WN, moderate distress (secondary to pain) Eyes: Right Eye Other (?? cataract); Left Eye PERRL, Left Eye EOMI HEENT: pharynx normal; No scleral icterus (R), No scleral icterus (L); other (scars on right side of face) Neck: non-tender, supple Respiratory: chest non-tender, lungs clear, normal breath sounds, no respiratory distress, no accessory muscle use Cardiovascular: regular rate, rhythm, no murmur Gastrointestinal: normal bowel sounds, soft, no pulsatile mass, tenderness (mild tenderness with deep palpation), hepatomegaly Back: no CVA tenderness, other (right back tenderness, over kidney) Extremities: no pedal edema, no calf tenderness, normal capillary refill Neurologic/Psychiatric: alert, normal mood/affect, oriented x 3 Skin: normal color, warm/dry Lymphatic: no adenopathy (neck, axilla or groin) Data Review Labs Laboratory Tests 01/13/19 09:52: White Blood Count 5.9, Red Blood Count 5.04, Hemoglobin 16.7, Hematocrit 47, Mean Corpuscular Volume 93, Mean Corpuscular Hemoglobin 33, Mean Corpuscular Hemoglobin Concent 36, Red Cell Distribution Width 12.5, Platelet Count 150, Mean Platelet Volume 11.0H, Neutrophils (%) (Auto) 45, Lymphocytes (%) (Auto) 41, Monocytes (%) (Auto) 8, Eosinophils (%) (Auto) 5, Basophils (%) (Auto) 1, Neutrophils # (Auto) 2.6, Lymphocytes # (Auto) 2.4, Monocytes # (Auto) 0.5, Eosinophils # (Auto) 0.3, Basophils # (Auto) 0.1, Sodium Level 139, Potassium Level 3.9, Chloride Level 107, Carbon Dioxide Level 23, Anion Gap 9, Blood Urea Nitrogen 10, Creatinine 0.76, Estimat Glomerular Filtration Rate > 60, BUN/ Creatinine Ratio 13, Glucose Level 132H, Calcium Level 9.6, Corrected Calcium 9.5, Total Bilirubin 0.8, Aspartate Amino Transf (AST/SGOT) 47H, Alanine Aminotransferase (ALT/SGPT) 65H, Alkaline Phosphatase 57, Total Protein 8.4H, Albumin 4.1 01/13/19 13:05: Urine Color YELLOW, Urine Clarity CLEAR, Urine pH 8, Urine Specific [place] 1.015L, Urine Protein 2+H, Urine Glucose (UA) NEGATIVE, Urine Ketones 1+H, Urine Nitrite POSITIVEH, Urine Bilirubin 1+H, Urine Urobilinogen 4H, Urine Leukocyte Esterase 2+H, Urine RBC (Auto) 1+H, Urine RBC RARE, Urine WBC 2-5, Urine Squamous Epithelial Cells RARE, Urine Crystals NONE, Urine Bacteria TRACE, Urine Casts NONE, Urine Mucus MODERATEH, Urine Culture Indicated YES 01/13/19 18:00: Urine Color YELLOW, Urine Clarity CLEAR, Urine pH 7, Urine Specific [place] 1.010L, Urine Protein NEGATIVE, Urine Glucose (UA) NEGATIVE, Urine Ketones NEGATIVE, Urine Nitrite NEGATIVE, Urine Bilirubin NEGATIVE, Urine Urobilinogen 1, Urine Leukocyte Esterase NEGATIVE, Urine RBC (Auto) NEGATIVE, Urine RBC RARE, Urine WBC RARE, Urine Squamous Epithelial Cells NONE, Urine Crystals NONE, Urine Bacteria TRACE, Urine Casts NONE, Urine Mucus SMALLH, Urine Culture Indicated NO Assessment/Plan Assessment/Plan Assessment/Plan Right Back Pain UTI Dilated GB Pt does not need to be admitted, CT showed dilated GB and US confirmed this with possible polyp in neck of GB. However, pt is not having any GB symptoms and WBC is normal. I can see him as an outpt if anything changes. CARA BENOIT DO Jan 13, 2019 20:18
--- NOTE | 2019-01-13 20:42 | NUR ---
the antibiotic was in deed flagyl after rechecking. i do not see flagyl was ordered.
--- NOTE | 2019-01-13 20:42 | NUR ---
flagyl and bolus completed. pt says hes urinating around the owusu. i do not see that currently. sheets dry.
--- NOTE | 2019-01-13 21:35 | NUR ---
Upon entering room, pt demanding owusu catehter to be dc'd stating, "it hurts and its f*cking leaking all over me, take it out now!" This RN dc'd owusu catheter. Pt continues to curse at this RN stating "i'm never coming back to this f*cking hospital again, you guys are f*cking terrible!" This RN attempted to redirect pt by explaing reasoning for delay in care. Pt continues to curse at RN. Pt refuses d/c vital signs to be taken. Pt signs d/c paper work and ambulates out of ED care. A&OX4.
[2019-01-13 21:37] VITALS: BP 142/113
== END 2019-01-13 21:37 | disposition home or self-care (01) ==
LOC: EDUNIT# 09:02 → ER 09:03
DX: N39.0 Urinary tract infection, site not specified (principal); N45.1 Epididymitis; I10 Essential (primary) hypertension; Z98.890 Other specified postprocedural states
CPT/HCPCS: 36415; 51702; 74176; 76705; 80053; 81000; 85025; 87088

== ENCOUNTER 2020-12-12 12:02 | Emergency (ER) | payer MEDICARE, MEDICAID ==
[~2020-12-12] VITALS: Ht 190.5 cm; Wt 111.1 kg
[~2020-12-12 12:02] MED LIST changes: +AMLO-250 PO; -AMLO5TAB9 PO; -CLIN300C11 PO; +CLIN300C12 PO; -HYDR-3812 PO; +LEVO500T80 PO; -LISI-556 PO; +LISI-729 PO; -LISI10TA2 PO; +LISI10TA25 PO
[2020-12-12 12:10] VITALS: BP 189/118
--- NOTE | 2020-12-12 12:16 | ED General ---
General Stated Complaint: LOSS OF TASTE/SMELL,EYE PAIN Source of Information: Patient Exam Limitations: No Limitations History of Present Illness Date Seen by Provider: Dec 12, 2020 Time Seen by Provider: 12:16 Initial Comments Loss of taste and smell with bilateral eye discomfort after being exposed to a friend who is Covid positive during a December democrat. Timing/Duration: 1-2 Days Severity: Moderate Associated Systoms: Headaches Allergies and Home Medications Allergies Coded Allergies: No Known Drug Allergies (Unverified , 05/01/18) Home Medications Amlodipine Besylate 5 Mg Tablet, 5 MG PO DAILY, (Reported) Clindamycin HCl 300 Mg Capsule, 300 MG PO QID Prescribed by: IGLESIA BURNS on 04/28/18 1325 Hydrocodone Bit/Acetaminophen 1 Each Tablet, 1 EACH PO Q4-6HR PRN for PAIN- MODERATE Prescribed by: IGLESIA BURNS on 04/28/18 1325 Levofloxacin 500 Mg Tablet, 500 MG PO DAILY Prescribed by: ELLY QUINONES on 01/13/19 1856 Lisinopril 10 Mg Tablet, 10 MG PO DAILY, (Reported) Patient Home Medication List Home Medication List Reviewed: Yes Review of Systems Review of Systems Constitutional: see HPI, chills EENTM: see HPI, ear discharge Respiratory: no symptoms reported; No cough, No dyspnea on exertion, No short of breath Cardiovascular: no symptoms reported Genitourinary: no symptoms reported Musculoskeletal: no symptoms reported Skin: no symptoms reported Psychiatric/Neurological: No Symptoms Reported Hematologic/Lymphatic: No Symptoms Reported Immunological/Allergic: no symptoms reported Past Rcatboi-Sfhvuh-Oezlyt Hx Immunizations Up To Date Tetanus Booster (TDap): Unknown PED Vaccines UTD: No Seasonal Allergies Seasonal Allergies: No Past Medical History Surgeries: Yes (HERNIA REPAIR, HIPRIGHT, RIGHT LEG RIGHT SHOULDER, robby cyst) Abdominal, Orthopedic Respiratory: No Cardiac: Yes Hypertension Neurological: No Reproductive Disorders: No Sexually Transmitted Disease: Yes (syphilis at age 16) Genitourinary: No Gastrointestinal: No Musculoskeletal: Yes Back Injury Endocrine: No HEENT: Yes (Right eye injury) Cancer: No Psychosocial: No Integumentary: No Blood Disorders: No Family Medical History Patient reports no known family medical history. Heart Disease, Cancer Physical Exam Vital Signs Vital Signs - First Documented 12/12/20 12:10 Temp 36.9 Pulse 98 Resp 18 B/P (MAP) 189/118 (141) Pulse Ox 99 O2 Delivery Room Air Capillary Refill : Height, Weight, BMI Height: 6'3.00" Weight: 205lbs. 6.0oz. [id number]; 29.7 BMI Method:Stated General Appearance: No Apparent Distress, WD/WN, Other (98% room air, HR 87) Eyes: Bilateral Eye Normal Inspection, Bilateral Eye PERRL, Bilateral Eye EOMI HEENT: PERRL/EOMI, TMs Normal Neck: Full Range of Motion, Normal Inspection Respiratory: No Accessory Muscle Use, No Respiratory Distress Cardiovascular: Regular Rate, Rhythm Gastrointestinal: Normal Bowel Sounds, Non Tender, Soft Neurologic/Psychiatric: Alert, Oriented x3 Skin: Normal Color, Warm/Dry Progress/Results/Core Measures Suspected Sepsis SIRS Temperature: Pulse: Respiratory Rate: Blood Pressure / Mean: Results/Orders Lab Results Laboratory Tests Test 12/12/20 12:15 Range/Units Influenza Type A (RT-PCR) Not Detected Not Detecte Influenza Type B (RT-PCR) Not Detected Not Detecte SARS-CoV-2 RNA (RT-PCR) Detected H Not Detecte My Orders Orders - EILEEN JOHNSON APRN Covid 19 Inhouse Test (12/12/20 12:05) Influenza A And B By Pcr (12/12/20 12:05) Vital Signs/I&O 12/12/20 12:10 Temp 36.9 Pulse 98 Resp 18 B/P (MAP) 189/118 (141) Pulse Ox 99 O2 Delivery Room Air Capillary Refill : Departure Impression Primary Impression: COVID-19 Disposition: 01 HOME, SELF-CARE Condition: Stable Departure-Patient Inst. Decision time for Depature: 12:57 Referrals: MIKE FLORES DO (PCP/Family) Primary Care Physician Patient Instructions: NO INSTRUCTIONS GIVEN Add. Discharge Instructions: You are positive for Covid. You need to quarantine away from family friends and work for 10 days. Work/School Note: Work Release Form Date Seen in the Emergency Department: Dec 12, 2020 Return to Work: Dec 22, 2020 EILEEN JOHNSON APRN Dec 12, 2020 12:16
== END 2020-12-12 13:08 | disposition home or self-care (01) ==
LOC: EDUNIT# 12:02 → ER 12:03
DX: U07.1 COVID-19 (principal); I10 Essential (primary) hypertension; Z79.899 Other long term (current) drug therapy
CPT/HCPCS: 87636; 99281

== ENCOUNTER 2020-12-24 08:57 | Emergency (ER) | payer MEDICARE, MEDICAID ==
[~2020-12-24] VITALS: Ht 190.5 cm; Wt 111.0 kg
[2020-12-24] MEDS ORDERED: KETOROLAC 30 MG/ML VIAL IVP ONE (09:30)
--- NOTE | 2020-12-24 09:31 | ED Back Pain ---
General Chief Complaint: Back Problems Stated Complaint: R LOWER BACK PAIN Source of Information: Patient Exam Limitations: No Limitations History of Present Illness Date Seen by Provider: Dec 24, 2020 Time Seen by Provider: 09:10 Initial Comments Patient to the ER by private conveyance with chief complaint that last night he was awoken with some sharp constant right lower back pain along his flank over his kidney. He denies a history of kidney stones. He says he was working on his truck yesterday when he noticed a little bit of discomfort. It is not worse with any positional change. He took Tylenol but it did not help with his pain. He cannot sleep despite it. He is not having any nausea fever chills cough shortness of air or dysuria. No hematuria. Allergies and Home Medications Allergies Coded Allergies: No Known Drug Allergies (Unverified , 05/01/18) Home Medications Amlodipine Besylate 5 Mg Tablet, 5 MG PO DAILY, (Reported) Clindamycin HCl 300 Mg Capsule, 300 MG PO QID Prescribed by: IGLESIA BURNS on 04/28/18 1325 Hydrocodone Bit/Acetaminophen 1 Each Tablet, 1 EACH PO Q4-6HR PRN for PAIN- MODERATE Prescribed by: IGLESIA BURNS on 04/28/18 1325 Hydrocodone/Acetaminophen 1 Each Tablet, 1 TAB PO Q6H PRN for PAIN-MODERATE (5- 7) Prescribed by: LINDA CRANE on 12/24/20 1623 Levofloxacin 500 Mg Tablet, 500 MG PO DAILY Prescribed by: ELLY QUINONES on 01/13/19 1856 Lisinopril 10 Mg Tablet, 10 MG PO DAILY, (Reported) Naproxen 500 Mg Tablet, 500 MG PO BID Prescribed by: LINDA CRANE on 12/24/20 1622 Patient Home Medication List Home Medication List Reviewed: Yes Review of Systems Constitutional: No chills, No diaphoresis, No fever EENTM: No ear discharge, No hearing loss, No ear pain Respiratory: No cough, No short of breath Cardiovascular: No chest pain, No edema Gastrointestinal: No abdominal pain, No nausea, No vomiting Genitourinary: No discharge, No dysuria Musculoskeletal: see HPI, back pain; No joint pain All Other Systems Reviewed Negative Unless Noted: Yes Past Vyfoghs-Vgxonf-Ubrjho Hx Patient Social History Tobacco Use?: Yes Tobacco type used: Cigarettes Smokeless Tobacco Frequency: Current Everyday User Use of E-Cig and/or Vaping dev: No Substance use?: No Alcohol Use?: No Immunizations Up To Date Tetanus Booster (TDap): Unknown PED Vaccines UTD: No Seasonal Allergies Seasonal Allergies: No Past Medical History Surgeries: Yes (HERNIA REPAIR, HIPRIGHT, RIGHT LEG RIGHT SHOULDER, robby cyst) Abdominal, Orthopedic Respiratory: No Cardiac: Yes Hypertension Neurological: No Reproductive Disorders: No Sexually Transmitted Disease: Yes (syphilis at age 16) Genitourinary: No Gastrointestinal: No Musculoskeletal: Yes Back Injury Endocrine: No HEENT: Yes (Right eye injury) Cancer: No Psychosocial: No Integumentary: No Blood Disorders: No Family Medical History Patient reports no known family medical history. Heart Disease, Cancer Physical Exam Vital Signs Vital Signs - First Documented 12/24/20 09:14 Temp 36.2 Pulse 92 Resp 18 B/P (MAP) 154/136 (142) Pulse Ox 99 O2 Delivery Room Air Capillary Refill : Height, Weight, BMI Height: 6'3.00" Weight: 205lbs. 6.0oz. 92.346446bl; 30.00 BMI Method:Stated General Appearance: WD/WN, Anxious, Moderate Distress HEENT: PERRL/EOMI, Moist Mucous Membranes Neck: Full Range of Motion, Normal Inspection Cardiovascular: Regular Rate, Rhythm, No Edema, Normal Peripheral Pulses Respiratory: Lungs Clear, Normal Breath Sounds, No Accessory Muscle Use, No Respiratory Distress Peripheral Pulses: 2+ Radial Pulses (R), 2+ Radial Pulses (L) Gastrointestinal: Normal Bowel Sounds, Non Tender, Soft Back: Normal Inspection, No Vertebral Tenderness, Muscle Spasm (right sided low thoracic high lumbar) Extremity: Normal Capillary Refill, Normal Inspection, No Pedal Edema Neurologic/Psychiatric: Alert, Oriented x3, No Motor/Sensory Deficits, Normal Mood/Affect Skin: Normal Color, Warm/Dry Progress/Results/Core Measures Results/Orders Lab Results Laboratory Tests Test 12/24/20 09:25 12/24/20 11:00 Range/Units White Blood Count 6.4 4.3-11.0 10^3/uL Red Blood Count 4.87 4.30-5.52 10^6/uL Hemoglobin 16.1 13.3-17.7 g/dL Hematocrit 46 40-54 % Mean Corpuscular Volume 95 80-99 fL Mean Corpuscular Hemoglobin 33 25-34 pg Mean Corpuscular Hemoglobin Concent 35 32-36 g/dL Red Cell Distribution Width 11.9 10.0-14.5 % Platelet Count 337 130-400 10^3/uL Mean Platelet Volume 10.1 9.0-12.2 fL Immature Granulocyte % (Auto) 1 % Neutrophils (%) (Auto) 51 42-75 % Lymphocytes (%) (Auto) 37 12-44 % Monocytes (%) (Auto) 7 0-12 % Eosinophils (%) (Auto) 4 0-10 % Basophils (%) (Auto) 1 0-10 % Neutrophils # (Auto) 3.2 1.8-7.8 10^3/uL Lymphocytes # (Auto) 2.4 1.0-4.0 10^3/uL Monocytes # (Auto) 0.5 0.0-1.0 10^3/uL Eosinophils # (Auto) 0.2 0.0-0.3 10^3/uL Basophils # (Auto) 0.1 0.0-0.1 10^3/uL Immature Granulocyte # (Auto) 0.0 0.0-0.1 10^3/uL Sodium Level 141 135-145 MMOL/L Potassium Level 3.8 3.6-5.0 MMOL/L Chloride Level 107 98-107 MMOL/L Carbon Dioxide Level 25 21-32 MMOL/L Anion Gap 9 5-14 MMOL/L Blood Urea Nitrogen 8 7-18 MG/DL Creatinine 0.64 0.60-1.30 MG/DL Estimat Glomerular Filtration Rate 132 BUN/Creatinine Ratio 13 Glucose Level 133 H 70-105 MG/DL Calcium Level 8.4 L 8.5-10.1 MG/DL Corrected Calcium 8.8 8.5-10.1 MG/DL Total Bilirubin 0.6 0.1-1.0 MG/DL Aspartate Amino Transf (AST/SGOT) 66 H 5-34 U/L Alanine Aminotransferase (ALT/SGPT) 90 H 0-55 U/L Alkaline Phosphatase 42 40-136 U/L C-Reactive Protein High Sensitivity 0.17 0.00-0.50 MG/DL Total Protein 8.1 6.4-8.2 GM/DL Albumin 3.5 3.2-4.5 GM/DL Urine Color YELLOW Urine Clarity CLEAR Urine pH 7.5 5-9 Urine Specific [place] 1.010 L 1.016-1.022 Urine Protein NEGATIVE NEGATIVE Urine Glucose (UA) NEGATIVE NEGATIVE Urine Ketones NEGATIVE NEGATIVE Urine Nitrite NEGATIVE NEGATIVE Urine Bilirubin NEGATIVE NEGATIVE Urine Urobilinogen 0.2 < = 1.0 MG/DL Urine Leukocyte Esterase NEGATIVE NEGATIVE Urine RBC (Auto) NEGATIVE NEGATIVE Urine RBC NONE /HPF Urine WBC 0-2 /HPF Urine Squamous Epithelial Cells 0-2 /HPF Urine Crystals NONE /LPF Urine Bacteria NEGATIVE /HPF Urine Casts NONE /LPF Urine Mucus NEGATIVE /LPF Urine Culture Indicated NO My Orders Orders - LINDA CRANE Ua Culture If Indicated (12/24/20 09:02) Ketorolac Injection (Toradol Injection) (12/24/20 09:30) Cbc With Automated Diff (12/24/20 09:28) Comprehensive Metabolic Panel (12/24/20 09:28) Hs C Reactive Protein (12/24/20 09:28) Ed Iv/Invasive Line Start (12/24/20 09:28) Ed Iv/Invasive Line Start (12/24/20 10:38) Ns Iv 1000 Ml (Sodium Chloride 0.9%) (12/24/20 10:45) Ct Abd/Pelvis Wo(Kidney Stone) (12/24/20 13:34) Morphine Injection (Morphine Injection (12/24/20 13:36) Methylprednisolone Acetate Inj (Depo-Med (12/24/20 16:15) Medications Given in ED Current Medications Medications Dose Ordered Sig/Debra Route Start Time Stop Time Status Last Admin Dose Admin Ketorolac Tromethamine 30 mg ONCE ONCE IVP 12/24/20 09:30 12/24/20 09:31 DC 12/24/20 09:42 30 MG Methylprednisolone Acetate 40 mg ONCE ONCE IM 12/24/20 16:15 12/24/20 16:16 DC 12/24/20 16:24 40 MG Vital Signs/I&O 12/24/20 12/24/20 09:14 16:25 Temp 36.2 36.2 Pulse 92 92 Resp 18 18 B/P (MAP) 154/136 (142) 154/136 (142) Pulse Ox 99 99 O2 Delivery Room Air Room Air Progress Progress Note #1: Time: 09:30 Progress Note Nontraumatic back and flank pain. We will start with some Toradol check some labs and get a urinalysis out of them. Progress Note #2: Time: 16:12 Progress Note The patient's pain still I feel is musculoskeletal. He does have some groundglass opacities however he just got off of Covid precautions within the last 3 weeks. Suspect that the findings in his lung are indicative of his Covid infection but not an active Covid infection. He is asymptomatic and has not had fever for several days. We will give him some hydrocodone, naproxen and a shot of Depo-Medrol and follow-up in 1 week with primary care for reevaluation. Return precautions discussed. Patient is okay with this plan. Diagnostic Imaging Diagonstic Imaging: CT Plain Films/CT/US/NM/MRI: abdomen, pelvis Comments [facility] [place], [place] NAME: MIKE FINK [facility] REC#: [id number] PT STATUS: REG ER : 1970 PHYSICIAN: LINDA CRANE MD ADMIT DATE: 12/24/20/ER Draft Date of Exam:12/24/20 CT ABD/PELVIS WO(KIDNEY STONE) CT ABD/PELVIS WO(KIDNEY STONE) TECHNIQUE: Unenhanced CT imaging of the abdomen and pelvis was performed. 2-D reformats are created and submitted for interpretation. Automatic exposure controls were utilized to optimize patient dose. INDICATION: Lower back pain beginning last night. COMPARISON: CT abdomen and pelvis from 01/13/2019. FINDINGS: Evaluation of the abdominal viscera is mildly limited without contrast. Lower chest: Multifocal ill-defined ground-glass opacities in the bilateral lung bases are new. Peritoneum: No free intraperitoneal air or fluid. Liver and biliary system: Diffuse hypoattenuation of the liver is unchanged and likely due to diffuse hepatic steatosis. No focal hepatic mass. Gallbladder is moderately distended as prior exam with cholelithiasis present. No features of acute cholecystitis by CT. Spleen and Pancreas: Spleen remains enlarged measuring 15 cm. No focal splenic mass. Unenhanced pancreas is grossly normal. Adrenals: Normal. tract: No renal or ureteral calculi. No obstructive uropathy. Prostate is not enlarged. GI tract: Stomach is decompressed. No bowel obstruction. No pericolonic inflammatory change. Appendix is normal. Vasculature and Lymph nodes: Normal caliber aorta with scattered atherosclerotic plaques. No abdominal or pelvic lymphadenopathy. Musculoskeletal: No concerning osseous lesion. Stable subcutaneous nodule in the left groin. The nodule previously seen along the left aspect of the gluteal crease has resolved. IMPRESSION: 1. Patchy peripheral ground-glass opacities in the lung bases are new and is a pattern that can be seen with COVID-19 pneumonia. 2. No urinary tract calculi or obstructive uropathy. 3. Unchanged splenomegaly and hepatic steatosis. 4. Unchanged subcutaneous nodule in the anterior aspect of the left thigh/groin is most likely a large sebaceous cyst. Dictated on workstation # [id number] Dict: 12/24/20 1411 Trans: 12/24/20 1422 [id number] Interpreted by: GEOVANNI VALDEZ MD Electronically signed by: Reviewed: Reviewed by Me Departure Impression Primary Impression: Strain of thoracic region Qualified Codes: S29.019A - Strain of muscle and tendon of unspecified wall of thorax, initial encounter Disposition: HOME, SELF-CARE Condition: Stable Departure-Patient Inst. Decision time for Depature: 16:14 Referrals: MIKE FLORES DO (PCP/Family) Primary Care Physician Patient Instructions: Upper Back Pain (DC), Muscle Strain ED Add. Discharge Instructions: Ice packs applied directly to the spot that hurts for 20 minutes every 2 hours for the next 2 to 3 days. Topical creams such as icy hot or Biofreeze. Heating pads can be helpful for pain. Follow-up with your doctor in the next 1 to 2 weeks if not seeing improvement to discuss physical therapy or other measures. All discharge instructions reviewed with patient and/or family. Voiced understanding. Scripts Hydrocodone/Acetaminophen (Hydrocodone-Acetamin 5-325 mg) 1 Each Tablet 1 TAB PO Q6H PRN for PAIN-MODERATE (5-7), #12 TAB 0 Refills Prov: LINDA CRANE 12/24/20 Naproxen (Naprosyn) 500 Mg Tablet 500 MG PO BID, #30 TAB 0 Refills Prov: LINDA CRANE 12/24/20 Copy Copies To 1: MIKE FLORES TITUS J Dec 24, 2020 09:30
[2020-12-24 09:33] LABS: BASOPHILS # (AUTO) 0.1 10^3/uL (0.0-0.1); BASOPHILS % (AUTO) 1 % (0-10); EOSINOPHILS # (AUTO) 0.2 10^3/uL (0.0-0.3); EOSINOPHILS % (AUTO) 4 % (0-10); HEMATOCRIT 46 % (40-54); HEMOGLOBIN 16.1 g/dL (13.3-17.7); LYMPHOCYTES # (AUTO) 2.4 10^3/uL (1.0-4.0); LYMPHOCYTES % (AUTO) 37 % (12-44); MEAN CORPUSCULAR HEMOGLOBIN 33 pg (25-34); MEAN CORPUSCULAR HGB CONC 35 g/dL (32-36); MEAN CORPUSCULAR VOLUME 95 fL (80-99); MEAN PLATELET VOLUME 10.1 fL (9.0-12.2); MONOCYTES # (AUTO) 0.5 10^3/uL (0.0-1.0); MONOCYTES % (AUTO) 7 % (0-12); NEUTROPHILS # (AUTO) 3.2 10^3/uL (1.8-7.8); NEUTROPHILS % (AUTO) 51 % (42-75); PLATELET COUNT 337 10^3/uL (130-400); WHITE BLOOD COUNT 6.4 10^3/uL (4.3-11.0)
[2020-12-24 09:40] LABS: ALBUMIN 3.5 GM/DL (3.2-4.5); POTASSIUM 3.8 MMOL/L (3.6-5.0)
[2020-12-24 09:41] LABS: CALCIUM 8.4 MG/DL (8.5-10.1)
[2020-12-24 09:43] LABS: TOTAL PROTEIN 8.1 GM/DL (6.4-8.2)
[2020-12-24 09:44] LABS: BILIRUBIN,TOTAL 0.6 MG/DL (0.1-1.0)
[2020-12-24 09:46] LABS: CREATININE SERUM 0.64 MG/DL (0.60-1.30)
[2020-12-24] MEDS ORDERED: NS IV 1000 ML 1,000 ML IV SCH (10:45)
[2020-12-24 11:12] LABS: BILIRUBIN,URINE NEGATIVE (NEGATIVE); CLARITY,URINE CLEAR; COLOR,URINE YELLOW; GLUCOSE, URINE (UA) NEGATIVE (NEGATIVE); KETONES,URINE NEGATIVE (NEGATIVE); LEUKOCYTE ESTERASE ,URINE NEGATIVE (NEGATIVE); NITRITE,URINE NEGATIVE (NEGATIVE); PH,URINE 7.5 (5-9); PROTEIN,URINE NEGATIVE (NEGATIVE)
[2020-12-24 11:24] LABS: BACTERIA,URINE NEGATIVE /HPF; SQUAMOUS EPITHELIAL CELL,UR 0-2 /HPF; WBC,URINE 0-2 /HPF
[2020-12-24] MEDS ORDERED: morphine INJ 10 MG/ML 1ML (SYR OR VIAL) IVP STA (13:36)
--- NOTE | 2020-12-24 14:23 | Diagnostic Imaging Report ---
CT ABD/PELVIS WO(KIDNEY STONE) TECHNIQUE: Unenhanced CT imaging of the abdomen and pelvis was performed. 2-D reformats are created and submitted for interpretation. Automatic exposure controls were utilized to optimize patient dose. INDICATION: Lower back pain beginning last night. COMPARISON: CT abdomen and pelvis from 01/13/2019. FINDINGS: Evaluation of the abdominal viscera is mildly limited without contrast. Lower chest: Multifocal ill-defined ground-glass opacities in the bilateral lung bases are new. Peritoneum: No free intraperitoneal air or fluid. Liver and biliary system: Diffuse hypoattenuation of the liver is unchanged and likely due to diffuse hepatic steatosis. No focal hepatic mass. Gallbladder is moderately distended as prior exam with cholelithiasis present. No features of acute cholecystitis by CT. Spleen and Pancreas: Spleen remains enlarged measuring 15 cm. No focal splenic mass. Unenhanced pancreas is grossly normal. Adrenals: Normal. tract: No renal or ureteral calculi. No obstructive uropathy. Prostate is not enlarged. GI tract: Stomach is decompressed. No bowel obstruction. No pericolonic inflammatory change. Appendix is normal. Vasculature and Lymph nodes: Normal caliber aorta with scattered atherosclerotic plaques. No abdominal or pelvic lymphadenopathy. Musculoskeletal: No concerning osseous lesion. Stable subcutaneous nodule in the left groin. The nodule previously seen along the left aspect of the gluteal crease has resolved. IMPRESSION: 1. Patchy peripheral ground-glass opacities in the lung bases are new and is a pattern that can be seen with COVID-19 pneumonia. 2. No urinary tract calculi or obstructive uropathy. 3. Unchanged splenomegaly and hepatic steatosis. 4. Unchanged subcutaneous nodule in the anterior aspect of the left thigh/groin is most likely a large sebaceous cyst. Dictated by: Dictated on workstation # [id number]
[2020-12-24] MEDS ORDERED: methylPREDNISolone 40 MG/ML (DEPO MEDROL) VIAL IM ONE (16:15)
[2020-12-24] MEDS ORDERED: NAPR-1071 PO (16:22)
[2020-12-24] MEDS ORDERED: ACHD5005 PO (16:22)
[2020-12-24 16:25] VITALS: BP 154/136
== END 2020-12-24 16:38 | disposition home or self-care (01) ==
LOC: EDUNIT# 08:57 → ER 09:00
DX: S29.012A Strain of muscle and tendon of back wall of thorax, initial encounter (principal); I10 Essential (primary) hypertension; X50.1XXA Overexertion from prolonged static or awkward postures, initial encounter
CPT/HCPCS: 36415; 74176; 80053; 81000; 85025; 86141; 96361; 96372; 96374; 96375

== ENCOUNTER → 2021-02-09 | Outpatient (CLI) | payer MEDICARE, MEDICAID ==
[~2021-02-09] MED LIST changes: +NAPR-1071 PO
--- NOTE | 2021-02-09 11:04 | Diagnostic Imaging Report ---
EXAMINATION: Left ankle radiographs, 3 views. COMPARISON: None. HISTORY: 50-year-old male, fall. Left ankle pain. FINDINGS: There is a calcaneal heel spur. There is no identified acute fracture. The alignment of the ankle mortise is unremarkable. There is no tibiotalar joint effusion. IMPRESSION: 1. No acute bony abnormality of the left ankle. 2. Calcaneal heel spur. Dictated by: Dictated on workstation # [id number]
== END ==
LOC: RAD 10:34
PROVIDERS: ATTEND Family Medicine
DX: M77.32 Calcaneal spur, left foot (principal)
CPT/HCPCS: 73610

== ENCOUNTER 2021-09-04 19:54 | Emergency (ER) | payer MEDICARE, MEDICAID ==
[~2021-09-04] VITALS: Ht 161 cm; Wt 111.1 kg
[~2021-09-04 19:54] MED LIST changes: +CLIN-144 PO; -CLIN300C12 PO; -LEVO500T80 PO; +LEVO500T81 PO; -LISI-729 PO; +LISI5TAB20 PO
[2021-09-04] MEDS ORDERED: fentaNYL INJ 100 MCG/2 ML AMP IVP STA (19:58)
[2021-09-04] MEDS ORDERED: KETOROLAC 30 MG/ML VIAL IVP STA (19:58)
[2021-09-04] MEDS ORDERED: LACTATED RINGERS 1,000 ML IV ONE (20:00)
[2021-09-04] MEDS ORDERED: TETANUS,DIPTH,PERTUSS P/F (BOOSTRIX) 0.5 ML VIAL IM ONE (20:00)
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
[2021-09-04] MEDS ORDERED: morphine INJ 10 MG/ML 1ML (SYR OR VIAL) IVP STA ×3 (20:26→21:30)
[2021-09-04] MEDS ORDERED: KETO10TA PO (22:14)
[2021-09-04] MEDS ORDERED: SILV20CR14 TP (22:14)
[2021-09-04] MEDS ORDERED: HYDR-34 PO (22:14)
[2021-09-04 22:55] VITALS: BP 126/90
[2021-09-05] MEDS ORDERED: SILVER SULFADIAZINE 50 GM CREAM TOP SCH (09:00)
== END 2021-09-04 22:59 | disposition home or self-care (01) ==
LOC: EDUNIT# 19:54 → ER 19:56
DX: T22.20XA Burn of second degree of shoulder and upper limb, except wrist and hand, unspecified site, initial encounter (principal); T22.211A Burn of second degree of right forearm, initial encounter; T20.16XA Burn of first degree of forehead and cheek, initial encounter; T20.17XA Burn of first degree of neck, initial encounter; T20.112A Burn of first degree of left ear [any part, except ear drum], initial encounter; X08.8XXA Exposure to other specified smoke, fire and flames, initial encounter; Y92.096 Garden or yard of other non-institutional residence as the place of occurrence of the external cause
CPT/HCPCS: 90715; 93041

== ENCOUNTER → 2023-03-08 | Outpatient (CLI) | payer MEDICARE, MEDICAID ==
[~2023-03-08] MED LIST changes: +HYDR-34 PO; +KETO10TA PO; +LEVO-55 PO; -LEVO500T81 PO; +SILV20CR14 TP
[2023-03-08 15:35] LABS: HEMATOCRIT 47 % (40-54); HEMOGLOBIN 16.3 g/dL (13.3-17.7); MEAN CORPUSCULAR HEMOGLOBIN 34 pg (25-34); MEAN CORPUSCULAR HGB CONC 35 g/dL (32-36); MEAN CORPUSCULAR VOLUME 97 fL (80-99); MEAN PLATELET VOLUME 11.5 fL (9.0-12.2); PLATELET COUNT 144 10^3/uL (130-400); WHITE BLOOD COUNT 7.3 10^3/uL (4.3-11.0)
[2023-03-08 15:44] LABS: POTASSIUM 4.1 MMOL/L (3.6-5.0)
[2023-03-08 15:45] LABS: ALBUMIN 4.3 GM/DL (3.2-4.5)
[2023-03-08 15:46] LABS: CALCIUM 9.2 MG/DL (8.5-10.1)
[2023-03-08 15:47] LABS: TOTAL PROTEIN 8.8 GM/DL (6.4-8.2)
[2023-03-08 15:49] LABS: BILIRUBIN,TOTAL 1.4 MG/DL (0.1-1.0)
[2023-03-08 15:51] LABS: CREATININE SERUM 0.84 MG/DL (0.60-1.30)
== END ==
LOC: LAB 15:19
PROVIDERS: ATTEND Family Medicine
DX: I10 Essential (primary) hypertension (principal)
CPT/HCPCS: 36415; 80053; 80061; 84153; 85027